=== PATIENT | female | born 1950 | race Caucasian/White ===

== ENCOUNTER 2016-09-13 06:19 | Observation (INO) | payer BC, OTHER ==
[2016-09-13] VITALS (12 sets, daily range): BP systolic 105–146; BP diastolic 60–84; PULSE 61–85; TEMP 36.4–37; O2SAT 95–100; Ht 170.2 cm; Wt 151.6 kg
[~2016-09-13] VITALS: Ht 170.2 cm; Wt 151.6 kg
[~2016-09-13 06:19] MED LIST: ATOR10TA82 PO; CEFAZOLIN 3000 MG/65 ML D5W 65 ML IV SCH; FRS/40 PO; GLC/500 PO; LACTATED RINGER'S 1000ML IV SCH; LEVO150T9 PO; LISI-729 PO; PRLSR20 PO; WARF5TAB7 PO; WARF7.5T4 PO
[2016-09-13] MEDS ORDERED: BUPIVACAINE 0.5 % 5 MG/1 ML MPF 30ML VIAL ONE (06:59)
[2016-09-13] MEDS ORDERED: LIDOCAINE HCL 1% 20 ML VIAL ONE (06:59)
[2016-09-13] MEDS ORDERED: BACITRACIN 50000 UNIT VIAL ONE (06:59)
[2016-09-13] MEDS ORDERED: MIDAZOLAM HCL 5 MG/ML 1 ML VIAL ONE (07:39)
[2016-09-13] MEDS ORDERED: FENTANYL CITRATE INJ 50 MCG/1 ML 2 ML VIAL ONE ×4 (07:39→09:51)
--- NOTE | 2016-09-13 07:50 | History & Physical Bridge Note ---
H&P Re-Evaluation Bridge Note: I have examined the patient, reviewed the History & Physical and in the interval since the performance of the History & Physical I have noted the following changes of clinical significance: No changes noted
--- NOTE | 2016-09-13 07:50 | Procedure Note ---
Pre-Mod Sedation Assessment General Date of Moderate Sedation: September 13, 2016. Vital Signs: Vital Signs Past 12 Hours Date Time Temp Pulse Resp B/P Pulse Ox O2 Delivery O2 Flow Rate FiO2 09/13/16 06:39 37 85 18 146/60 95 Room Air Review Cardiovascular: regular rate, rhythm, + bradycardia Abdomen: soft Lungs: lungs clear Airway Class: II Pre-Sedation Airway Assessment Oral Cavity: Chipped Teeth Short Thick Neck: Yes Hx of Sleep Apnea: No Smoking Status: Former Smoker Mallampati Classification: Class II ASA Classification: Class II Procedure Planning Contraindications-for Mod Sed: None Yes Notes The planned sedation has been discussed with the patient and consent obtained. I have identified the patient, determined the appropriateness of sedation and have assessed the patient immediately prior to the procedure. All medicine(s) and interventions are by my order.
[2016-09-13] MEDS ORDERED: MIDAZOLAM HCL 1 MG/ML 2ML VIAL ONE ×5 (08:49→10:03)
--- NOTE | 2016-09-13 10:36 | Procedure Note ---
Post-Mod Sedation Assessment General Date of Moderate Sedation September 13, 2016. Vital Signs: Vital Signs Past 12 Hours Date Time Temp Pulse Resp B/P Pulse Ox O2 Delivery O2 Flow Rate FiO2 09/13/16 10:20 60 22 173/74 100 Mask 3 09/13/16 06:39 37 85 18 146/60 95 Room Air Review - Discharge Criteria Vital Signs Stable: Yes Alert/Oriented/Conversant: Yes Returned to Baseline Mental St: Yes Nausea Absent/Minimal: Yes Pain/Discomfort/Absent/Minimal: Yes Normal/Baseline Respirations: Yes Active Bleeding?: No Pt Received D/C Instructions: N/A Prescriptions Given: None Specific Proced. D/C Criteria Distal Pulses Present (Cardiac: N/A Groin site assessed-Card Cath: N/A Voided Prior To Discharge: N/A Discharged Patients Adult Escort/Transportation: N/A
--- NOTE | 2016-09-13 10:36 | [facility] Post Operative Brief Note ---
Immediate Operative Summary Operative Date September 13, 2016. Pre-Operative Diagnosis TACHY-KARI SYNDROME Post-Operative Diagnosis SAME Procedure(s) Performed DUAL CHAMBER PERMANENT PACEMAKER UNDER FLUROSCOPIC GUIDANCE WITH PERIPHERAL VENOGRAM Surgeon RONI GAINES Personnel Adviser Surgeon(s) NONE Estimated Blood Loss <20CC Findings NONE Fluids (cc crystalloids) 400CC Specimens NONE Drains NONE Anesthesia 14MG VERSED AND 350MCG FENTANYL Complication(s) None Disposition PCU
[2016-09-13] MEDS ORDERED: ACETAMINOPHEN 325 MG TAB PO PRN (10:45)
[2016-09-13] MEDS ORDERED: IV FLUIDS COMPLETED PRN (11:30)
[2016-09-13] MEDS: ACETAMINOPHEN/CODEINE 300/30MG TAB PO PRN (11:55)
[2016-09-13] MEDS: METOPROLOL SUCC 25MG EXT REL TAB PO SCH (12:12)
[2016-09-13 12:21] LABS: INR 1.4 (0.9-1.1); PROTHROMBIN TIME (PATIENT) 15.6 SECONDS (9.0-12.0)
--- NOTE | 2016-09-13 14:07 | OPERATIVE REPORT ---
DATE OF OPERATION: 09/13/2016 PREOPERATIVE DIAGNOSIS: Tachybrady syndrome. POSTOPERATIVE DIAGNOSIS: Same. PROCEDURE: Dual chamber rate responsive permanent pacemaker under fluoroscopic guidance along with a peripheral venogram. SURGEON: Dr. Farida Mathews. FLOODPLAIN MANAGER: None. ANESTHESIA: Monitored anesthetic conscious sedation given under my supervision. Administering nurse was Yakov Joy. A total of 14 mg of Versed, 350 mcg of fentanyl. Start time 8:09; End time 9:20 INTRAVENOUS FLUIDS: 400 mL CONTRAST: 10 mL ANTIBIOTICS: 3 grams of Ancef. COMPLICATIONS: None. CONDITION: Stable. URINE OUTPUT: Not applicable. FINDINGS: None. DRAINS: None. BLOOD LOSS: Less than 20 mL INDICATIONS: This is a 66-year-old female who has a past medical history of persistent atrial fibrillation, on Coumadin, not on AV latonya blockers, history of atrial flutter, status post CTI ablation in the past, chronic diastolic heart failure [place] Heart Association class III, diabetes, hypertension, hyperlipidemia, hypothyroidism, and morbid obesity. The patient has been having evidence of tachybrady syndrome. She is not on any AV latonya blockers and was recommended dual chamber permanent pacemaker with the idea in the future to have a cardioversion and start on antiarrhythmic medicines. CONSENT: Consent was obtained prior to the patient going to the electrophysiology lab. The patient was explained of the risks, benefits, alternatives to the procedure. Risks include but not limited to sudden cardiac , cardiac arrhythmias, cerebrovascular accident, myocardial infarction, injury to the blood vessels, chamber of the heart, lungs, bleeding, infection, or blood clots. The patient understood these risks and agreed to the procedure as planned. Informed consent was obtained. DESCRIPTION OF THE PROCEDURE: The patient was brought into the electrophysiology lab in a fasting state. She was connected to continuous entrepreneurial finance professor and a timeout was performed to ensure the patient's identity and procedure correctly. The patient was prepped and draped over the left infraclavicular space in normal surgical standard fashion. Monitored conscious sedation was given throughout the procedure for the patient's comfort level. Fries precautions were maintained throughout the procedure. The patient received prophylactic antibiotics prior to the incision. 10 mL of 1% lidocaine-bupivacaine mixture were given in the left deltopectoral groove. Incision was made in the left deltopectoral groove. Blunt dissection was performed down to identify the cephalic vein. The cephalic vein was identified and isolated using 0 silk ties. The vein was nicked with an 11 blade and a guidewire was inserted without any resistance. A 7-Mauritian sheath was inserted over the guidewire without resistance. The dilator was removed and a second guidewire was inserted over it through the 7-Mauritian sheath to allow for retained venous access. The sheath was then removed, flushed, dilator reinserted on it, and then it was inserted over one of the guidewires. The guidewire and dilator were removed. The right ventricular lead was advanced into the right ventricle and positioned into the right ventricular apex under fluoroscopic guidance. It did need to be repositioned 2 additional times due to some elevated impedance and thresholds. Ultimately, in the apex, we got stable sensing, impedance and thresholds, and there was no diaphragmatic stimulation with high output pacing. The sheath was then peeled away and lead was fixated to the pectoralis muscle using 0 silk suture. Initially, a 7-Mauritian sheath was used to try to advance over the retained guidewire through the cephalic vein; however, due to a lot of soft tissue, the sheath kept bending and did not have enough force. We up-dilated it using an 8-Mauritian dilator and a 9-Mauritian dilator and then ultimately used a 7-Mauritian OptiSeal sheath and inserted that over the guidewire without resistance. However, when I was having problems before I had the OptiSeal sheath, we did set up for a peripheral venogram using 10 mL of IV contrast, followed by 10 mL of flush, so I could identify the axillary vein because I thought I was going to have the stick, but with the OptiSeal sheath, I was able to use the cephalic vein. The dilator and sheath were removed and the right atrial lead was positioned into the right atrial appendage under fluoroscopic guidance. The patient was in atrial fibrillation, so no threshold testing was performed, but sensing of the fib waves and impedance were stable. There was no diaphragmatic stimulation with high output pacing. The sheath was peeled away and the lead was fixated to pectoralis muscle using 0 silk suture. Using blunt dissection, a pacemaker pocket was created over the pectoralis muscle within the pectoralis fascia. The pocket was then flushed with copious amounts of bacitracin saline wash and inspected for hemostasis. The pulse generator was then attached to the leads, making sure that the pins were in appropriate position, passed the set screws, and set screws were all tightened. The pulse generator was then placed in the pocket, making sure that the leads were lying flat beneath the device. A stay stitch using 0 silk suture was used to secure the device to the pectoralis muscle. Taya stat was used in the pocket as the patient is going back on Coumadin. Then, the incision was closed in a 3-layer fashion using 2-0 Vicryl suture, followed by 3-0 suture, followed by a 4-0 Monocryl running stitch, and Dermabond was applied. EQUIPMENT: 1. Pulse generator is a [employer] DAISY Akers [id number], serial number [id number]. 2. Right atrial lead Medtronic 5076-52 cm, serial number [id number]. 3. Right ventricular lead Medtronic 5076-58 cm, serial number [id number]. INTRAOPERATIVE TESTIN. Right atrial lead fib waves were sensed at 1 millivolt, impedance 613 ohms, no threshold testing as the patient was in AFib. 2. Right ventricular lead: R-wave 10.1 millivolts, impedance 1388 ohms, threshold 0.4 volts at 0.3 milliamps. FINAL MEASUREMENTS THROUGH THE DEVICE: 1. Right atrial lead fib waves 0.8 millivolts, impedance 456 ohms. 2. Right ventricular lead: R-waves 11.9 millivolts, impedance 912 ohms, threshold 0.5 volts at 0.4 milliseconds. FINAL PARAMETERS: MVP-R 60/130. Right atrial amplitude 3.5 volts, pulse width 0.4 milliseconds, sensitivity 0.3 millivolts. Right ventricular amplitude 3.5 volts, pulse width 0.4 milliseconds, sensitivity 0.9 millivolts. CONCLUSION: Successful implantation of a dual chamber rate responsive permanent pacemaker under fluoroscopic guidance secondary to tachybrady syndrome. PLAN: Monitor the patient overnight, 12-lead ECG, chest x-ray. She cannot lift the left elbow or left shoulder for 1 month. She cannot lift more than 10 pounds with the left arm for 2 weeks. She can shower in 2 days, let water run over the incision, do not scrub it. We will start her on Toprol 25 mg daily with the intention that we are restarting her Coumadin once she has had therapeutic Coumadin for the next month or we would do a FABIENNE prior to arranging for cardioversion and hospital admission for sotalol initiation. She should follow up in our [facility] in 7-10 days for a wound check. I attest to the content of the Intraoperative Record and any orders documented therein. Any exceptions are noted below. MYRON
[2016-09-13] MEDS: METFORMIN HCL 500 MG TAB PO SCH (15:24)
[2016-09-13] MEDS ORDERED: WARFARIN SOD 5 MG TAB PO SCH (16:00)
[2016-09-13] MEDS ORDERED: ATORVASTATIN 10 MG TAB PO SCH (21:00)
[2016-09-14] MEDS: ACETAMINOPHEN/CODEINE 300/30MG TAB PO PRN (01:36)
[2016-09-14 03:47] VITALS: BP 95/57; PULSE 74; TEMP 36.8; O2SAT 96
[2016-09-14] MEDS ORDERED: LEVOTHYROXINE 150 MCG TAB PO SCH (06:00)
--- NOTE | 2016-09-14 07:46 | DIAGNOSTIC IMAGING REPORT ---
CHEST 2 VIEWS ROUTINE CLINICAL HISTORY: Pacemaker insertion. COMPARISON STUDY: Chest radiograph October 11, 2013. FINDINGS: There has been interval placement of a dual lead left subclavian pacemaker. Lead tips project over the right atrial appendage and the right ventricle. There is mild cardiomegaly. No pneumothorax is present. There is no evidence of pulmonary edema. There is mild to moderate elevation/eventration of the right hemidiaphragm. Median sternotomy wires are present. IMPRESSION: No pneumothorax following placement of a dual lead left subclavian pacemaker. Electronically signed by: Luan Villavicencio M.D. 09/14/2016 7:45 AM Dictated Date/Time: 09/14/2016 7:43 AM
[2016-09-14 08:00] VITALS: O2SAT 96
[2016-09-14] MEDS: METFORMIN HCL 500 MG TAB PO SCH (08:00)
[2016-09-14] MEDS: METOPROLOL SUCC 25MG EXT REL TAB PO SCH (08:02)
[2016-09-14 08:33] VITALS: BP 123/70; PULSE 59; TEMP 36.9; O2SAT 96
[2016-09-14] MEDS ORDERED: TPRSR25 PO (08:50)
--- NOTE | 2016-09-14 08:52 | Discharge Instructions ---
Discharge Instructions Date of Service September 14, 2016. Admission Reason for Admission: Tachy Shruthi Syndrome Discharge Discharge Diagnosis / Problem: tachy-shruthi syndrome Discharge Goals Goal(s): Improve function Activity Recommendations Activity Limitations: as noted below (do not lift the left elbow over the left shoulder for 1 month and lift more than 10 pounds with the left arm for 2 weeks) Exercise/Sports Limitations: as tolerated May Resume Sexual Activity: after one week Shower/Bathe: tomorrow Driving or Machine Use: resume 1 day after discharge . Instructions / Follow-Up Instructions / Follow-Up ACTIVITY RECOMMENDATIONS: * Do not raise affected arm over head for 4 weeks. SPECIAL CARE INSTRUCTIONS: * If bleeding occurs, apply direct pressure to area for 5 minutes. * Call your doctor if you have severe pain, fever, drainage or bleeding at site. * Keep dry for 24 hours. * Keep any scheduled doctor's appointment. * Implant Card - hand held device with website information given. SKIN IRRITATION: * You may experience some redness and/or swelling in the area where radiation was administered. If any skin irritation occurs, please contact your family physician. FOLLOW UP VISIT: Keep any scheduled doctor appointments. Current Hospital Diet Patient's current hospital diet: AHA Diet (Heart Healthy), Diabetes Type 2 Diet Discharge Diet Recommended Diet: AHA Diet (Heart Healthy) Procedures Procedures Performed: DUAL CHAMBER PERMANENT PACEMAKER UNDER FLUROSCOPIC GUIDANCE WITH PERIPHERAL VENOGRAM Pending Studies Studies pending at discharge: no Medical Emergencies . Who to Call and When: Medical Emergencies: If at any time you feel your situation is an emergency, please call 911 immediately. . Non-Emergent Contact Non-Emergency issues call your: [employer] Administrator . . "Provider Documentation" section prepared by Farida Mathews. . VTE Core Measure Inpt VTE Proph given/why not?: Warfarin (Coumadin)
--- NOTE | 2016-09-14 08:55 | Discharge Summary ---
Discharge Summary Date of Service September 14, 2016. Discharge Summary Admission Date: September 13, 2016 at 10:34 Discharge Date: September 14, 2016 Discharge Disposition: Home Principal Diagnosis: tachy-shruthi syndrome Secondary Diagnoses/Problems: persistent atrial fibrillation h/o atrial flutter s/p CTI ablation morbid obesity Procedures: dual chamber pacemaker Medication Reconciliation New Medications: Metoprolol Succinate (Metoprolol Succinate ER) 25 Mg Tabcr 25 MG PO QAM for 30 Days, #30 Continued Medications: Atorvastatin (Lipitor) 10 Mg Tab 10 MG PO QPM, TAB Furosemide (Lasix) 40 Mg Tab 40 MG PO QAM, TAB Levothyroxine Sodium (Levothyroxine Sodium) 150 Mcg Tab 1 TAB PO QAM for 90 Days, #90 TAB 3 Refills Lisinopril (Zestril) 5 Mg Tab 5 MG PO QAM, TAB Metformin Hcl (Glucophage) 500 Mg Tab 500 MG PO BID, TAB Omeprazole (Prilosec) 20 Mg Capcr 20 MG PO QAM, CAP Warfarin Sod (Jantoven) 5 Mg Tab 5 MG PO DAILY, TAB Admission Information Physical Exam (per Admitting): aaox3, nad nc/at, eomi supple, no jvd irregular irregular s1/s2, no murmur cta b/l no w/r/r soft non tender no edema no focal deficits Hospital Course patient admitted for elective permanent pacemaker insertion due to tachy-shruthi syndrome. Underwent procedure without complications. Monitored overnight and started on Toprol. Discharged home next day Total time spent on discharge = This includes examination of the patient, discharge planning, medication reconciliation, and communication with other providers. Discharge Instructions ACTIVITY RECOMMENDATIONS: * Do not raise affected arm over head for 4 weeks. SPECIAL CARE INSTRUCTIONS: * If bleeding occurs, apply direct pressure to area for 5 minutes. * Call your doctor if you have severe pain, fever, drainage or bleeding at site. * Keep dry for 24 hours. * Keep any scheduled doctor's appointment. * Implant Card - hand held device with website information given. SKIN IRRITATION: * You may experience some redness and/or swelling in the area where radiation was administered. If any skin irritation occurs, please contact your family physician. FOLLOW UP VISIT: Keep any scheduled doctor appointments.
[2016-09-14 08:57] LABS: ACT87 HEP C IGG SCREEN** NEG (NEG)
[2016-09-14] MEDS ORDERED: LISINOPRIL 5 MG TAB PO SCH (09:00)
[2016-09-14] MEDS ORDERED: FUROSEMIDE 40 MG TAB PO SCH (09:00)
[2016-09-14 09:20] LABS: INR 1.3 (0.9-1.1); PROTHROMBIN TIME (PATIENT) 14.4 SECONDS (9.0-12.0)
[2016-09-14 10:40] VITALS: BP 123/70; PULSE 72; TEMP 36.9; O2SAT 96
--- NOTE | 2016-09-14 14:09 | Cardiology Follow-Up ---
Subjective Subjective Date of Service: September 14, 2016. Pt evaluation today including: conversation w/ patient, physical exam, lab review, review of studies Review of Systems Constitutional: No fatigue Respiratory: No dyspnea on exertion, No shortness of breath Cardiac: No chest pain, No edema, No palpitations Abdomen: No diarrhea, No vomiting Endo: No fatigue Objective Vital Signs Last Vital Signs Documentation Date Time Temp Pulse Resp B/P Pulse Ox O2 Delivery O2 Flow Rate FiO2 09/14/16 10:40 36.9 72 18 96 Room Air 09/14/16 08:33 123/70 09/13/16 10:20 3 Physical Exam: General Appearance: WD/WN, no apparent distress Eyes: bilateral eyes EOMI, bilateral eyes PERRL Neck: supple, no JVD Respiratory/Chest: lungs clear, normal breath sounds Cardiovascular: no JVD, no murmur, + tachycardia, + irregularly irregular Abdomen: soft Neurologic/Psychiatric: alert, oriented x 3 Skin: warm/dry Assessment and Plan 1. TBS 2. Persistent atrial fibrillation on coumadin 3. Chronic diastolic heart failure HF, NYHA class III 4. H/o CTI ablation for atrial flutter 5. HTN 6. DM 7. HLD 8. Hypothyroidism 9. Morbid obesity Plan: -Ok for discharge home today -start toprol 25mg daily -pt not to lift her left elbow over left shoulder for 1 month and no lifting more than 10 pounds for 2 weeks -continue other home medications -f/u in our office in 7-10 days -anticipate cardioversion with possible FABIENNE before hand followed by anti- arrhythmic initiation probably sotalol in about a month Discharge planning: home Medications: Medications Administered Medications (Trade) Dose Ordered Sig/Go Route Start Time Stop Time Status Last Admin Dose Admin Cefazolin Sodium (Ancef 3000 Mg/ 65 ml D5W) 65 ml @ 100 mls/hr PREOP IV 09/13/16 06:00 09/14/16 05:59 DC 09/13/16 06:00 100 MLS/HR Fentanyl Citrate (Fentanyl Inj) 100 mcg STK-MED ONCE .ROUTE 09/13/16 07:39 09/13/16 07:40 DC 09/13/16 07:39 100 MCG Midazolam HCl (Versed Inj) 5 mg STK-MED ONCE .ROUTE 09/13/16 07:39 09/13/16 07:40 DC 09/13/16 07:39 5 MG Fentanyl Citrate (Fentanyl Inj) 100 mcg STK-MED ONCE .ROUTE 09/13/16 08:35 09/13/16 08:36 DC 09/13/16 08:35 100 MCG Midazolam HCl (Versed Inj) 2 mg STK-MED ONCE .ROUTE 09/13/16 08:49 09/13/16 08:50 DC 09/13/16 08:49 2 MG Midazolam HCl (Versed Inj) 2 mg STK-MED ONCE .ROUTE 09/13/16 09:08 09/13/16 09:09 DC 09/13/16 09:08 2 MG Fentanyl Citrate (Fentanyl Inj) 100 mcg STK-MED ONCE .ROUTE 09/13/16 09:09 09/13/16 09:10 DC 09/13/16 09:09 100 MCG Midazolam HCl (Versed Inj) 2 mg STK-MED ONCE .ROUTE 09/13/16 09:20 09/13/16 09:21 DC 09/13/16 09:20 2 MG Midazolam HCl (Versed Inj) 2 mg STK-MED ONCE .ROUTE 09/13/16 09:37 09/13/16 09:39 DC 09/13/16 09:37 2 MG Fentanyl Citrate (Fentanyl Inj) 100 mcg STK-MED ONCE .ROUTE 09/13/16 09:51 09/13/16 09:52 DC 09/13/16 09:51 50 MCG Midazolam HCl (Versed Inj) 2 mg STK-MED ONCE .ROUTE 09/13/16 10:03 09/13/16 10:04 DC 09/13/16 10:03 1 MG Acetaminophen/ Codeine Phosphate (Tylenol w/ Codeine #3 Tab) 1 tab for pain scale 4-6 2 t... Q4H PRN PO 09/13/16 10:45 09/14/16 10:58 DC 09/14/16 01:36 1 TAB Acetaminophen (Tylenol Tab) 650 mg Q4H PRN PO 09/13/16 10:45 09/14/16 10:58 DC 09/13/16 16:36 650 MG Atorvastatin Calcium (Lipitor Tab) 10 mg QPM PO 09/13/16 21:00 09/14/16 10:58 DC 09/13/16 21:30 10 MG Furosemide (Lasix Tab) 40 mg QAM PO 09/14/16 09:00 09/14/16 10:58 DC 09/14/16 08:02 40 MG Levothyroxine Sodium (Synthroid Tab) 150 mcg DAILYBB PO 09/14/16 06:00 09/14/16 10:58 DC 09/14/16 05:40 150 MCG Lisinopril (Zestril Tab) 5 mg QAM PO 09/14/16 09:00 09/14/16 10:58 DC 09/14/16 08:02 5 MG Metformin HCl (Glucophage Tab) 500 mg BIDM PO 09/13/16 16:45 09/14/16 10:58 DC 09/14/16 08:00 500 MG Warfarin Sodium (Coumadin Tab) 5 mg DAILY@1600 PO 09/13/16 16:00 09/14/16 10:58 DC 09/13/16 15:24 5 MG Metoprolol Succinate (Toprol Xl Tab) 25 mg QAM PO 09/13/16 11:00 09/14/16 10:58 DC 09/14/16 08:02 25 MG Lab Results: 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
[2016-11-11] MEDS ORDERED: BTP80 PO (14:39)
== END 2016-09-14 10:57 | disposition home or self-care (01) ==
LOC: C.ACU 06:19 → C.2T 10:34
PROVIDERS: ADMIT Internal Medicine; ATTEND Internal Medicine
DX: I49.5 Sick sinus syndrome (principal); I48.1 Persistent atrial fibrillation; I50.32 Chronic diastolic (congestive) heart failure; E11.9 Type 2 diabetes mellitus without complications; I10 Essential (primary) hypertension; E03.9 Hypothyroidism, unspecified; H81.10 Benign paroxysmal vertigo, unspecified ear; E66.01 Morbid (severe) obesity due to excess calories; Z98.890 Other specified postprocedural states; Z87.891 Personal history of nicotine dependence; Z90.89 Acquired absence of other organs; Z79.899 Other long term (current) drug therapy; Z79.01 Long term (current) use of anticoagulants; Z82.49 Family history of ischemic heart disease and other diseases of the circulatory system; Z83.6 Family history of other diseases of the respiratory system; Z83.3 Family history of diabetes mellitus; Z80.9 Family history of malignant neoplasm, unspecified; Z83.49 Family history of other endocrine, nutritional and metabolic diseases

== ENCOUNTER → 2016-10-30 | Outpatient (CLI) | payer BC ==
[~2016-10-30] MED LIST changes: -ATOR10TA82 PO; +ATOR10TA88 PO; +BTP80 PO; -CEFAZOLIN 3000 MG/65 ML D5W 65 ML IV SCH; -LACTATED RINGER'S 1000ML IV SCH; +TPRSR25 PO
--- NOTE | 2016-10-31 06:18 | PAP/PSG TECHNICIAN REPORT ---
[facility] Grader Tender Polysomnogram Report Study name: None Report date: 10/31/2016 Study date: 10/30/2016 Referring Physician: DARLING RODARTE PA-C Name: CAROLINE PEMBERTON Interpreting Physician: James Ashley D.O. Date of : 1950 Grader Tender: Jesus Wells RPSGT. Sex: Female Age: 66 StudyType: PSG Weight: 337 lbs Height: 66 years, Height 5' 7" BMI: 52.78 Medications: LISINOPRIL 5 MG, JANTOVEN 5 MG, TOPROL XL 50 MG, LEVOXYL 150 MCG, LIPITOR 10 MG, LASIX 40 MG, GLUCOPHAGE 500 MG Patient History PATIENT HAS HISTORY OF HYPERSOMNIA, HEART FAILURE, HYPERTENSION, A-FIB AND FATIGUE. ALSO HAS HISTORY OF HYPOXEMIA. SHE IS HERE TODAY FOR AN EVALUATION FOR FERNY. ESS = 1 RM 7 Parameters Monitored NPSG: E1-M2, E2-M1, Fp1-M2, Fp2-M1, F3-M2, F4-M2, F4-M1, C3-M2, C4-M2, C4-M1, O1-M2, O2-M2, O2-M1, T3-M2, T4-M1, P3-M2, P4-M1, CHIN1, CHIN2, HR, EKG, Legs, PFLOW, SNOR, FLOW, CFLOW, Tidal Volume, THOR, ABDO, SpO2, PLTH, CPRESS, ETCO2 Wave, ETCO2, pH Sleep Architecture Sleep Stages Time at Lights Off 10:21:19 PM STAGES Time (min.) TST (%) Time at Lights On 5:30:49 AM Wake 60.5 -- Total Recording Time (TRT) 430.00 min. N1 11.0 3 Total Sleep Period (TSP) 382.5 min. N2 194.5 53 Total Sleep Time (TST) 369.0min. N3 87.5 24 Awake Time 60.5 min. REM 76.0 21 Wake after Sleep Onset 13.5 min. Sleep Efficiency (SE) 86 % Sleep Onset Latency (SHEILA) 47.0 min. Number of Stage 1 Shifts None Awakenings 16 Stage Changes 76 Number of REM periods 6 REM 76.0 21 REM Latency 77.0 min. NREM 293.0 79 Body Position Analysis Supine Right Left Side Prone Vertical Total Sleep Time (min.) 429.5 0.0 0.0 0.00 0.0 0.0 Total Sleep Time (%) 100% 0% 0% 0 0% N/A% Total Sleep Time REM (min.) 76.0 0.0 0.0 None 0.0 0.0 Total Sleep Time NREM (min.) 293.0 0.0 0.0 None 0.0 0.0 Intermittent Wake (min.) 60.5 0.0 0.0 None 0.0 0.0 Total Sleep Period (%) 100% None None None None None Arousals Myoclonus (PLM) * Events Count Index Events Count Index Spontaneous 30 5 Events Awake (PLMW) 66 65.5 Respiratory 6 1.0 Events Asleep w/ Arousal (PLMA) 5 0.8 PLM 5 1 Events Asleep w/o Arousal (PLMS) 47 7.6 Snoring 1 0 Total Asleep 52 8.5 Total 42 7 Total 118 16 Respiratory Analysis * CA OA MA CH H RERA Total Count 0 0 0 0 68 3 68 Index 0.0 0.0 0.0 0 11.1 0 11.5 Mean Duration 0.0 0.0 0.0 0.00 20.2 15.6 20.0 Longest Duration 0.0 0.0 0.0 0.00 0.0 18.3 39.3 Respiratory Event Summary Total Supine ~Supine Right Left Prone REM NREM Apneas Count 0 0 N/A N/A N/A N/A 0 0 Index 0.0 0 N/A N/A N/A N/A 0 0 Hypopneas (4% Desat) Count 68 68 N/A N/A N/A N/A 54 14 Index 11.1 11.1 N/A N/A N/A N/A 42.6 2.9 Apneas & All Hypopneas Count 68 68 N/A N/A N/A N/A 54 14 Index 11.1 11 N/A N/A N/A N/A 42.6 2.9 Respiratory Events (Microfilm Camera Operator+All Hyp+RERA) Count 68 71 N/A N/A N/A N/A 54 14 Index 11.5 12 N/A N/A N/A N/A 43.4 3.3 Respiratory Related Arousal Count 6 71 N/A N/A N/A N/A 4 2 Index 1.0 1 N/A N/A N/A N/A 3 0 Snoring Analysis Supine Right Left Prone REM NREM Total Snore duration 1.2 min Snores count 19 N/A N/A N/A 5 14 19 Snore mean duration 3.9 Sec Snores index 3 N/A N/A N/A 3.9 2.9 3.1 TST with snoring (%) 0.3% Desaturation Event Summary: Minimum %SpO2 Event Count Mean/Min/Max Duration(sec.) Desaturation Index % Time In Bed > 90 64 32.9 / 6.0 / 58.5 9.3 96.7 86 - 90 6 18.0 / 6.0 / 28.0 41.7 2.0 81 - 85 4 21.2 / 16.0 / 28.0 46.9 1.2 76 - 80 0 N/A 0.0 0.1 71 - 75 0 N/A 0.0 0.0 66 - 70 0 N/A 0.0 0.0 61 - 65 0 N/A 0.0 0.0 56 - 60 0 N/A 0.0 0.0 51 - 55 0 N/A 0.0 0.0 < 50 0 N/A 0.0 0.0 Total REM NREM Awake <50% 0.0 min. 0.0 min. 0.0 min. 0.0 min. 51 - 60% 0.0 min. 0.0 min. 0.0 min. 0.0 min. 61 - 70% 0.0 min. 0.0 min. 0.0 min. 0.0 min. 71 - 80% 0.5 min. 0.5 min. 0.0 min. 0.0 min. 81 - 90% 13.7 min. 12.5 min. 0.4 min. 0.8 min. 91 - 100% 414.3 min. 62.9 min. 292.4 min. 59.0 min. Average 94 93 94 95 Minimum SpO2 73 73 83 83 Desaturation Event Index 9.6 41.8 2.7 3.0 # Desat. Events below 89% 30 29 1 0 Time(%) with Saturation below 89% 2.4 2.1 0.1 0.2 Time(min.) with Saturation below 89% 10.1 9.1 0.3 0.7 Time (mins) REM (mins) NREM (mins) % of TST SpO2 Below 90% 39 36 N3 3.0 SpO2 Below 88% 16 0 0 2 Heart Rate Analysis Min (bpm) Max (bpm) Average (bpm) Awake 58 127 66 NREM 57 85 65 REM 58 88 66 Overall 57 88 65 Supplemental O2 Values Minimum O2 level: None Value Start Time End Time Grader Tender Comments Ms. Pemberton slept in the supine positions. Irregular EKG noted at times. Leg movements noted. No bruxism noted. Snoring was noted and scored as a 2 on a scale of 1 through 5. (0=no snoring, 5=snoring loud enough to be heard through a closed door or down the lee way) Ms. Pemberton awoke to use the restroom 0 times during the night. Ms. Pemberton stated I slept as well as I do when I am in my own bed. The final report will be interpreted and signed by a sleep physician. The completed physician report will then be placed in the patient medical record. Therapy (cm H2O) 0 TIB (min.) 429.5 TST (min.) 369.0 Sleep Onset (min.) 47.0 REM Onset From Sleep (min.) 77.0 Sleep Efficiency % 86 Wakefulness (%) 14 Wakefulness (min.) 60.5 NREM 1 (%) 3 NREM 1 (min.) 11.0 NREM 2 (%) 53 NREM 2 (min.) 194.5 NREM 3 (%) 24 NREM 3 (min.) 87.5 REM (%) 21 REM (min.) 76.0 # Arousals 42 Arousal Index 7 # Snore 19 Snore Index 3.1 AHI 11.1 AHI Supine 11 AHI Non-Supine N/A NREM AHI 2.9 REM AHI 42.6 RDI 11.5 # Obstructive Apnea 0 # Central Apnea 0 # Mixed Apnea 0 # Hypopneas 68 RERAs 3 Total Respiratory Events 71 Time Below SpO2 89% (min.) 9.4 Mean NREM SpO2 (%) 94 Mean REM SpO2 (%) 93 Mean Sleep SpO2 (%) 94 Min NREM SpO2 (%) 83 Min REM SpO2 (%) 73 Position Supine (min.) 429.5 Position Non-supine (min.) 0.0 LM Index Sleep 8.5 LM Index NREM 7.0 LM Index REM 14.2 Mean Heart Rate (bpm) 65 Min Heart Rate (bpm) 57
--- NOTE | 2016-11-06 16:35 | Sleep Study ---
Sleep Study Report Date of Service: 10/30/2016 Sleep Study Report CLINICAL DATA: Patient is referred by Guero Cruz PA-C for an in-lab sleep study. She is a 66-year-old female with a BMI of 52.78. Her complaints were those of excessive daytime somnolence. She has a history of atrial fibrillation, hypertension, diabetes mellitus, and congestive heart failure. SLEEP ARCHITECTURE: The total sleep. Was 382.5 minutes. The total sleep time was 369.0 minutes. The sleep efficiency is mildly reduced to 86 percent. The sleep onset latency was 47 minutes which is elevated. Wake after sleep onset was 13.5 minutes. The REM latency was normal at 77.0 minutes. Sleep consisted of stage N1 3 percent, stage N2 53 percent, stage N3 24 percent, stage REM 21 percent. AROUSAL DATA: Patient had a total of 42 arousals including 30 spontaneous arousals, 6 respiratory arousals, 5 PLM arousals, and 1 snoring arousal. The arousal index was 7. PLM data: The patient 52 periodic limb movements of sleep for an index of 8.5. There were 5 arousals for a PLM arousal index of 0.8. EKG: The underlying cardiac rhythm was atrial fibrillation. The cardiac rates ranged from 57 to 88 beats per minute. RESPIRATORY DATA: The patient had a total of 68 respiratory events, all hypopneas. Hypopneas were scored by the 4 percent desaturation rule. The apnea-hypopnea index was elevated at 11.1. The mean duration of the hypopneas was 20.2 seconds it is notable that most of the events occurred during REM sleep in the apnea-hypopnea index during REM was 42.6. Results reflect mild sleep apnea. OXIMETRY DATA: The average saturation for the night was 94 percent. The minimum saturation was 73 percent. There was a total of 10.1 minutes with saturations less than 89 percent. The desaturations mainly occurred during REM sleep. MEMBERSHIP SECRETARY COMMENTS: The patient slept in the supine position leg movements were noted. No bruxism noted. Snoring was noted in scored as a 2 on a scale of 1 through 5 IMPRESSIONS: 1. Obstructive sleep apnea-mild 2. Atrial fibrillation COMMENTS: Patient has mild sleep apnea. However with her history of atrial fibrillation, hypertension, and congestive heart failure, clearly treatment would be advised. Her sleep efficiency was reduced mainly related to a prolonged sleep latency. Her oxygenation was abnormal as noted the major portion of the events occurred during REM sleep. RECOMMENDATIONS: 1. It is advised that the patient be treated with nasal CPAP. This could be done by referring [facility]. Alternatively she could be treated with auto CPAP. 2. The patient has an elevation of body mass index at 52.78. A weight reduction program is suggested. 3. The patient spent this entire study in the supine position. If possible it is advised that she avoid sleeping supine is there is typically more respiratory events in the supine position. Copies To 1: James Ashley DO; Nicolas Riley M.D.; Guero Cruz PA-C
--- NOTE | 2016-11-24 13:03 | Sleep Study ---
Sleep Study Report Date of Service: 10/31/16] Sleep Study Report Interpreting Physician: Carmen Fontnaa Edge Sawyer Jesus Wells RPSGT Ms Pemberton is a 66-year-old female who presents to the sleep lab for a baseline sleep study. She has a history of hypersomnia, heart failure, hypertension, and atrial fibrillation. She also has a history of nocturnal hypoxemia. Her [place] sleepiness scale score on the evening of the study is 1 , BMI is 52.78. Ms Pemberton total sleep period time was 382.5 minutes. total sleep time was 369 minutes. Sleep efficiency was 86%. Latency to sleep onset was 47 minutes with wake after sleep onset of 13.5 minutes. Total non-REM sleep time was 293 minutes. She spent 5% of that time in N1 sleep 53% in N2 sleep and 24% in N3 sleep. REM latency was 77 minutes. Total REM sleep time was 76 minutes or 21% of total sleep time. There were 42 cortical arousals from sleep. 30 of these arousals were spontaneous, 6 were due to respiratory events, 5 due to periodic limb movements of sleep, and 1 was due to a snoring events. There were 52 periodic limb movements of sleep on this test. Limb movement index was 8.5, lymph node with arousal index was 0.8. There were no obstructive central or mixed apneas on this study. There were 68 hypopneas. Apnea-hypopnea index was 11.1. REM AHI was 42.6. 19 [place] in the events were noted on this test. Total sleep time with snoring was 0.3%. Mean saturation was 94% with desaturations below 89% for 10.1 minutes of recorded time. There is no cardiac ectopy noted on this study. This patient's baseline heart rhythm was atrial fibrillation. Heart rates ranged from a low of 57 beats per minute to a high of 88 beats per minute during sleep. Impression and plan: 66-year-old female with history of atrial fibrillation hypertension and heart failure with evidence of mild sleep apnea, severe in REM sleep, and nocturnal hypoxemia on the sleep study. This patient would likely benefit from CPAP therapy. She should return to the sleep lab for a full night titration and then based on those results be started on CPAP at home. A download from her machine can be reviewed in 1 month to check compliance as well as AHI and further pressure adjustments can occur at that time. Alternatively, this patient could be started on auto titrating CPAP at home. Her device can be set to a pressure range of 5-15 cm of water. After 1 month, she can be set to optimal pressure and an overnight oximetry can confirm her hypoxemia resolved with CPAP alone. Should this patient be on willing or unable to tolerate CPAP therapy, she should be referred to ear nose and throat or oral surgery/ dental Medicine (if appropriate) to discuss alternative treatments for sleep disordered breathing. Sarah Fontana MD
== END | disposition home or self-care (01) ==
LOC: C.NEUR 20:00
PROVIDERS: ATTEND Physician Assistant
DX: G47.33 Obstructive sleep apnea (adult) (pediatric) (principal); G47.10 Hypersomnia, unspecified; I11.0 Hypertensive heart disease with heart failure; I50.30 Unspecified diastolic (congestive) heart failure; I48.1 Persistent atrial fibrillation

== ENCOUNTER 2016-11-09 10:16 | Inpatient (IN) | payer BC, OTHER ==
[2016-11-09] VITALS (7 sets, daily range): BP systolic 120–145; BP diastolic 68–85; PULSE 62–78; TEMP 36.3–36.6; O2SAT 95–98; Ht 167.6 cm; Wt 155.9 kg
[~2016-11-09] VITALS: Ht 167.6 cm; Wt 155.9 kg
[~2016-11-09 10:16] MED LIST changes: -BTP80 PO; -WARF7.5T4 PO
[2016-11-09] MEDS ORDERED: WARF7.5T4 PO (11:13)
[2016-11-09] MEDS ORDERED: ZOLPIDEM TARTRATE 5 MG TAB PO PRN ×2 (11:15)
[2016-11-09] MEDS ORDERED: POLYETHYLENE (MIRALAX) 17 GM PACK PO PRN (11:15)
[2016-11-09] MEDS ORDERED: MoRPHine SULFATE 2 MG/ML CARP IV PRN (11:15)
[2016-11-09] MEDS ORDERED: ONDANSETRON INJ 2 MG/ML 2 ML VIAL IV PRN (11:15)
[2016-11-09] MEDS ORDERED: ALUMINUM/MAGNESIUM/SIMETH (MAALOX MAX) 30 ML UDC PO PRN (11:15)
[2016-11-09] MEDS ORDERED: MAGNESIUM HYDROXIDE SUSP 30 ML UDC PO PRN (11:15)
[2016-11-09] MEDS ORDERED: SOTALOL HCL 80 MG TAB PO ONE (11:30)
--- NOTE | 2016-11-09 11:41 | History and Physical ---
History General Date of Service: Nov 09, 2016. Stated Complaint: Atrial Fibrillation History of Present Illness The patient is a 66 year old female who presents to [facility] with complaints of Atrial Fibrillation. The patient's primary care provider is Nicolas Riley M.D..Pt. with persistent Atrial fibrillation here to start Sotalol load and if possible cardioversion this admission. Historian: patient Review of Systems Constitutional: No see HPI, No fever, No chills, No sweats, No weight loss, No weakness, No fatigue, No problem reported Respiratory: No see HPI, No cough, No sputum, No wheezing, No shortness of breath, No dyspnea on exertion, No dyspnea at rest, No hemoptysis, No problem reported Cardiac: No see HPI, No chest pain, No orthopnea, No PND, No edema, No claudication, No palpitations, No problem reported Abdomen: No see HPI, No pain, No nausea, No vomiting, No diarrhea, No constipation, No GI bleeding, No problem reported Female : No see HPI, No dysuria, No urinary frequency, No hematuria, No incontinence, No abnormal vaginal bleeding, No vaginal discharge, No problem reported Neurologic: No see HPI, No memory loss, No paralysis, No weakness, No numbness/ tingling, No vertigo, No balance problems, No problem reported Heme: No see HPI, No abnormal bleeding/bruising, No clotting problems, No swollen lymph nodes, No night sweats, No problem reported Endo: No see HPI, No fatigue, No excessive thirst, No excessive urination, No problem reported Skin: No see HPI, No rash, No itch, No new/changing skin lesions, No color change, No bleeding, No problem reported All Other Systems: Reviewed and Negative Past Medical/Surgical History PAF Tachy Perez Atrial flutter ablation Pacemaker Atrial Septal defect repair at age 24 [facility] Diabetes,Hypertension,Dyslipidemia, Hypothyroid Family History Diabetes mellitus FH: cancer FH: gallbladder disease FH: heart disease FH: lung disease Social History Smoking Status: Former Smoker Alcohol: none Occupation Status: employed Immunizations History of Influenza Vaccine: N/A History of Tetanus Vaccine?: Yes Tetanus Immunization Date: Dec 21, 2006 History of Pneumococcal: No History of Hepatitis B Vaccine: No Allergies Coded Allergies: No Known Allergies (Verified , 09/13/16) Current Home Medications Reported Home Medications Medications Dose Route/Sig Max Daily Dose Days Date Category Dose Instructions Jantoven (Warfarin Sodium) 7.5 Mg Tab 7.5 Mg PO 11/09/16 Reported Metoprolol Succinate ER (Metoprolol Succinate) 25 Mg Tabcr 25 Mg PO QAM 30 09/14/16 Rx Lasix (Furosemide) 40 Mg Tab 40 Mg PO QAM 11/12/15 Reported Glucophage (Metformin Hcl) 500 Mg Tab 500 Mg PO BID 11/12/15 Reported Prilosec (Omeprazole) 20 Mg Capcr 20 Mg PO QAM 11/12/15 Reported Lipitor (Atorvastatin Calcium) 10 Mg Tab 10 Mg PO QPM 11/12/15 Reported Levothyroxine Sodium 150 Mcg Tab 1 Tab PO QAM 90 11/12/15 Reported Zestril (Lisinopril) 5 Mg Tab 5 Mg PO QAM 11/12/15 Reported Jantoven (Warfarin Sodium) 5 Mg Tab 5 Mg PO DAILY 11/12/15 Reported 5mg Monday and Monday Physical Exam Date Time Temp Pulse Resp B/P (MAP) Pulse Ox O2 Delivery O2 Flow Rate FiO2 11/09/16 10:45 36.5 78 18 135/80 98 Room Air Weight in Kilograms: 152.200 Constitutional: Level of Distress: NAD Ambulation: ambulating normally Head: normocephalic ENMT: normal ENT inspection Neck: supple, trachea midline, no masses Lungs: Respiratory effort: good air movement Auscultation: breath sounds normal Cardiovascular: Heart Auscultation: RRR, normal S1, normal S2, no murmurs, no rubs Peripheral Pulses: Carotid Pulse: normal on the left, normal on the right Radial Pulse: normal on the left, normal on the right Femoral Pulse: normal on the left, normal on the right Abdomen: Bowel Sounds: normal Inspection & Palpation: soft, non-distended Liver: non-tender Musculoskeletal: normal Extremities: no cyanosis Neurologic: Gait & Station: normal gait, normal station Cranial Nerves: grossly intact Sensation: grossly intact Diagnostics Laboratory Results Results Past 24 Hours Test 11/09/16 11:22 Range/Units Impression Assessment and Plan Persistent Atrial Fibrillation admitted for Sotalol load and possible cardioversion. Advanced Directives Existing Living Will: No Existing Power of Dentist Attendant: No DVT Prophylaxis warfarin (Coumadin)
[2016-11-09 12:30] LABS: HEMATOCRIT 36.8 % (37-47); MEAN CORPUSCULAR HEMOGLOBIN 28.7 pg (25-34); MEAN CORPUSCULAR HGB CONC 32.6 g/dl (32-36); MEAN PLATELET VOLUME 9.9 fL (7.4-10.4); PLATELET COUNT 198 K/uL (130-400); RED BLOOD COUNT 4.18 M/uL (4.2-5.4); WHITE BLOOD COUNT 5.63 K/uL (4.8-10.8)
[2016-11-09 12:50] LABS: PROTHROMBIN TIME (PATIENT) 52.2 SECONDS (9.0-12.0)
[2016-11-09 12:54] LABS: BUN/CREATININE RATIO 32.2 (10-20); CALCIUM 8.9 mg/dl (8.5-10.1); CREATININE 0.68 mg/dl (0.60-1.20); POTASSIUM 3.8 mmol/L (3.5-5.1)
[2016-11-09 12:57] LABS: PARTIAL THROMBOPLASTIN RATIO 2.4
[2016-11-09 13:00] LABS: INR 4.6 (0.9-1.1)
[2016-11-09] MEDS: METFORMIN HCL 500 MG TAB PO SCH (20:28)
[2016-11-09] MEDS: ATORVASTATIN 10 MG TAB PO SCH (20:29)
[2016-11-09] MEDS: SOTALOL HCL 80 MG TAB PO SCH (20:29)
[2016-11-10] VITALS (9 sets, daily range): BP systolic 127–156; BP diastolic 71–83; PULSE 60–65; TEMP 36.4–36.6; O2SAT 95–98
[2016-11-10] MEDS: ACETAMINOPHEN 325 MG TAB PO PRN ×3 (01:14→21:15)
[2016-11-10 03:22] LABS: INR 4.8 (0.9-1.1)
[2016-11-10] MEDS: LEVOTHYROXINE 150 MCG TAB PO SCH (05:47)
[2016-11-10] MEDS: SOTALOL HCL 80 MG TAB PO SCH ×2 (07:51→21:12)
[2016-11-10] MEDS: ASPIRIN 81 MG ECTAB PO SCH (07:51)
[2016-11-10] MEDS: METFORMIN HCL 500 MG TAB PO SCH ×2 (07:51→21:12)
[2016-11-10] MEDS: FUROSEMIDE 40 MG TAB PO SCH (07:51)
[2016-11-10] MEDS: LISINOPRIL 5 MG TAB PO SCH (07:52)
[2016-11-10] MEDS: PANTOprazole SOD 40 MG TAB PO SCH (07:52)
--- NOTE | 2016-11-10 08:55 | Cardiology Follow-Up ---
Subjective Subjective Date of Service: Nov 10, 2016. Pt evaluation today including: conversation w/ patient, physical exam, chart review, lab review, review of studies, review of inpatient medication list Additional Details: Pt. with musculoskeletal chest pain last night. No complaints this AM. V- paced rhythm, uncertain of value of QT interval on EKG. No arrhythmias other than atrial fib. Plan cardioversion for tomorrow. Review of Systems Constitutional: No see HPI, No fever, No chills, No sweats, No weight loss, No weakness, No fatigue, No problem reported Respiratory: No see HPI, No cough, No sputum, No wheezing, No shortness of breath, No dyspnea on exertion, No dyspnea at rest, No hemoptysis, No problem reported Cardiac: No see HPI, No chest pain, No orthopnea, No PND, No edema, No claudication, No palpitations, No problem reported Abdomen: No see HPI, No pain, No nausea, No vomiting, No diarrhea, No constipation, No GI bleeding, No problem reported Female : No see HPI, No dysuria, No urinary frequency, No hematuria, No incontinence, No abnormal vaginal bleeding, No vaginal discharge, No problem reported Neurologic: No see HPI, No memory loss, No paralysis, No weakness, No numbness/ tingling, No vertigo, No balance problems, No problem reported Heme: No see HPI, No abnormal bleeding/bruising, No clotting problems, No swollen lymph nodes, No night sweats, No problem reported Endo: No see HPI, No fatigue, No excessive thirst, No excessive urination, No problem reported Skin: No see HPI, No rash, No itch, No new/changing skin lesions, No color change, No bleeding, No problem reported Objective Vital Signs Last Vital Signs Documentation Date Time Temp Pulse Resp B/P (MAP) Pulse Ox O2 Delivery O2 Flow Rate FiO2 11/10/16 08:00 96 Room Air 11/10/16 07:33 36.4 60 20 146/82 (103) Physical Exam: General Appearance: WD/WN, no apparent distress ENT: normal ENT inspection Neck: supple, no adenopathy, no JVD Respiratory/Chest: lungs clear, normal breath sounds Cardiovascular: no JVD, no murmur, + tachycardia, + irregularly irregular Abdomen: soft Neurologic/Psychiatric: alert, oriented x 3 Skin: warm/dry Assessment and Plan Persistent atrial fib. Continue Sotalol load. Plan cardioversion in AM. INR today 4.8. Continue to hold warfarin. Medications: Current Inpatient Medications Medications (Trade) Dose Ordered Sig/Go Route Start Time Stop Time Status Last Admin Dose Admin Acetaminophen (Tylenol Tab) 650 mg Q4H PRN PO 11/09/16 11:15 12/09/16 11:14 11/10/16 05:49 650 MG Al Hydrox/Mg Hydrox/Simethicone (Maalox Max Susp) 15 ml Q4H PRN PO 11/09/16 11:15 12/09/16 11:14 Magnesium Hydroxide (Milk Of Magnesia Susp) 30 ml Q12H PRN PO 11/09/16 11:15 12/09/16 11:14 Zolpidem Tartrate (Ambien Tab) 5 mg HSZ PRN PO 11/09/16 11:15 12/09/16 11:14 Ondansetron HCl (Zofran Inj) 4 mg Q6H PRN IV 11/09/16 11:15 12/09/16 11:14 Morphine Sulfate (MoRPHine SULFATE INJ) 2 mg Q30M PRN IV 11/09/16 11:15 11/23/16 11:14 Aspirin (Ecotrin Tab) 81 mg QAM PO 11/10/16 09:00 12/10/16 08:59 11/10/16 07:51 81 MG Polyethylene (Miralax Powder Packet) 17 gm DAILY PRN PO 11/09/16 11:15 12/09/16 11:14 Atorvastatin Calcium (Lipitor Tab) 10 mg QPM PO 11/09/16 21:00 12/09/16 20:59 11/09/16 20:29 10 MG Furosemide (Lasix Tab) 40 mg QAM PO 11/10/16 09:00 12/10/16 08:59 11/10/16 07:51 40 MG Levothyroxine Sodium (Synthroid Tab) 150 mcg DAILYBB PO 11/10/16 06:00 12/10/16 05:59 11/10/16 05:47 150 MCG Lisinopril (Zestril Tab) 5 mg QAM PO 11/10/16 09:00 12/10/16 08:59 11/10/16 07:52 5 MG Metformin HCl (Glucophage Tab) 500 mg BID PO 11/09/16 21:00 12/09/16 20:59 11/10/16 07:51 500 MG Warfarin Sodium (Coumadin Tab) 5 mg DAILY@1600 PO 11/10/16 16:00 12/10/16 15:59 Pantoprazole Sodium (Protonix Tab) 40 mg QAM PO 11/10/16 09:00 12/10/16 08:59 11/10/16 07:52 40 MG Sotalol HCl (Betapace Tab) 80 mg BID PO 11/09/16 21:00 12/09/16 20:59 11/10/16 07:51 80 MG Test 11/09/16 12:18 11/09/16 20:17 11/10/16 02:13 11/10/16 02:32 White Blood Count 5.63 Red Blood Count 4.18 Hemoglobin 12.0 Hematocrit 36.8 Mean Corpuscular Volume 88.0 Mean Corpuscular Hemoglobin 28.7 Mean Corpuscular Hemoglobin Concent 32.6 RDW Standard Deviation 49.3 RDW Coefficient of Variation 15.3 Platelet Count 198 Mean Platelet Volume 9.9 Prothrombin Time 52.2 55.0 Prothrombin Time INR 4.6 4.8 PTT 63.0 Partial Thromboplastin Ratio 2.4 Sodium Level 140 Potassium Level 3.8 Chloride Level 106 Carbon Dioxide Level 27 Anion Gap 7.0 Blood Urea Nitrogen 22 Creatinine 0.68 Est Creatinine Clear Calc Drug Dose 122.2 Estimated GFR () 104.9 Estimated GFR (Non- 90.5 BUN/Creatinine Ratio 32.2 Random Glucose 101 Calcium Level 8.9 POC Glucose 102 Creatine Kinase MB Ratio Creatine Kinase MB 0.8 Troponin I < 0.015 Test 11/10/16 06:47 POC Glucose 85
[2016-11-10] MEDS: WARFARIN SOD 5 MG TAB PO SCH (16:00)
[2016-11-10] MEDS: ATORVASTATIN 10 MG TAB PO SCH (21:11)
[2016-11-10] MEDS: SODIUM CHLORIDE 0.9% 1000ML 1,000 ML IV SCH (21:12)
[2016-11-11] VITALS (13 sets, daily range): BP systolic 118–148; BP diastolic 39–82; PULSE 59–67; TEMP 36.3–36.9; O2SAT 96–100
[2016-11-11] MEDS: LEVOTHYROXINE 150 MCG TAB PO SCH (05:47)
[2016-11-11] MEDS: SODIUM CHLORIDE 0.9% 1000ML 1,000 ML IV SCH (08:08)
[2016-11-11] MEDS: ASPIRIN 81 MG ECTAB PO SCH (08:09)
[2016-11-11] MEDS: METFORMIN HCL 500 MG TAB PO SCH ×2 (08:09→21:27)
[2016-11-11] MEDS: PANTOprazole SOD 40 MG TAB PO SCH (08:09)
[2016-11-11] MEDS: SOTALOL HCL 80 MG TAB PO SCH ×2 (08:09→21:27)
[2016-11-11] MEDS: FUROSEMIDE 40 MG TAB PO SCH (08:09)
[2016-11-11] MEDS: LISINOPRIL 5 MG TAB PO SCH (08:10)
[2016-11-11 08:49] LABS: INR 3.2 (0.9-1.1)
--- NOTE | 2016-11-11 10:20 | Clinical Documentation Query ---
CLINICAL DOCUMENTATION QUERY 66 year old female who presents to [facility] with complaints of Atrial Fibrillation. In your clinical opinion is this patient being managed for: ( ) Chronic preserved EF(diastolic) CHF maintained with Lasix therapy ( ) Other explanation of clinical findings (Please Explain) ( ) Unable to determine (Please Define) ( ) Need to Discuss ( x ) Not Agree The medical record reflects the following clinical findings, treatment, and risk factors. Clinical Indicators: Patient takes Lasix, Lisinopril, and Metoprolol at home. Treatment: home Lasix continued as inpatient, telemetry, I/O's, daily weights. Risk Factors: Age, Afib, HTN, Please clarify and document your clinical opinion in the progress notes and discharge summary. Terms such as "probable", "suspected", "likely", "questionable", "possible", or "still to be ruled out" are acceptable. IF IN AGREEMENT, YOU MUST DOCUMENT ABOVE DIAGNOSTIC STATEMENT IN DAILY PROGRESS NOTES AND DISCHARGE SUMMARY. This document is not part of the patient's record. Thank You, Grant Sandhu, RN [phone]
--- NOTE | 2016-11-11 11:20 | Cardioversion ---
Electricial Cardioversion Rpt Date of Service: 11/11/16 Electrical Cardioversion Rprt Cardioversion completed. Two hundred joules of energy converting to NSR. Pt. returned to room in stable condition. Anesthesia provided sedation.
--- NOTE | 2016-11-11 11:22 | Cardiology Follow-Up ---
Subjective General Date of Service: Nov 11, 2016. Chief Complaint: Atrial Fib Pt evaluation today including: conversation w/ patient, conversation w/ family , physical exam, chart review, lab review, review of studies, review of inpatient medication list History of Present Illness The patient is a 66 year old female receiving sotalol load. Plan cardioversion today. Allergies Coded Allergies: No Known Allergies (Verified , 09/13/16) Social History Smoking Status: Former Smoker Hx Tobacco Use In Past Year?: No Hx Alcohol Use - Type And Amou: Yes (occasionally ) Hx Substance Use - Type And Am: No Physical Exam Vital Signs Last Vital Signs Documentation Date Time Temp Pulse Resp B/P (MAP) Pulse Ox O2 Delivery O2 Flow Rate FiO2 11/11/16 11:10 60 18 148/65 98 Nasal Cannula 2 11/11/16 07:20 36.3 Physical Exam Constitutional: Level of Distress: NAD Ambulation: ambulating normally Head: normocephalic ENMT: normal ENT inspection Neck: supple, trachea midline, no masses Lungs: Respiratory effort: good air movement Auscultation: breath sounds normal Cardiovascular: Heart Auscultation: RRR, normal S1, normal S2, no murmurs, no rubs Peripheral Pulses: Carotid Pulse: normal on the left, normal on the right Radial Pulse: normal on the left, normal on the right Femoral Pulse: normal on the left, normal on the right Abdomen: Bowel Sounds: normal Inspection & Palpation: soft, non-distended Liver: non-tender Musculoskeletal: normal Extremities: no cyanosis Neurologic: Gait & Station: normal gait, normal station Cranial Nerves: grossly intact Sensation: grossly intact Assessment and Plan Assessment and Plan Persistent Atrial Fibrillation admitted for Sotalol load and cardioversion. Laboratory Results Last 24 Hours Test 11/10/16 11:40 11/10/16 16:27 11/10/16 20:49 11/11/16 07:23 Bedside Glucose 91 mg/dl 96 mg/dl 106 mg/dl 103 mg/dl Test 11/11/16 08:08 Prothrombin Time 36.0 SECONDS Prothromb Time International Ratio 3.2
[2016-11-11] MEDS ORDERED: BTP80 PO (14:39)
--- NOTE | 2016-11-11 14:41 | Discharge Instructions ---
Discharge Instructions Date of Service Nov 11, 2016. Admission Reason for Admission: Atrial Fibrillation Dr Montenegro To Do With Ane Discharge Discharge Diagnosis / Problem: Atrial Fib Discharge Goals Goal(s): Improve function Activity Recommendations Activity Limitations: resume your previous activity . Current Hospital Diet Patient's current hospital diet: AHA Diet (Heart Healthy) Discharge Diet Recommended Diet: AHA Diet (Heart Healthy) Pending Studies Studies pending at discharge: no Medical Emergencies . Who to Call and When: Medical Emergencies: If at any time you feel your situation is an emergency, please call 911 immediately. . Non-Emergent Contact Non-Emergency issues call your: Primary Care Provider . . "Provider Documentation" section prepared by Shay Montenegro. . VTE Core Measure Inpt VTE Proph given/why not?: Warfarin (Coumadin)
--- NOTE | 2016-11-11 14:43 | Anesthesiology Progress Note ---
Anesthesia Post Op Note Date & Time Nov 11, 2016 at 14:43 Vital Signs Pain Intensity: 0 Vital Signs Past 12 Hours Date Time Temp Pulse Resp B/P (MAP) Pulse Ox O2 Delivery O2 Flow Rate FiO2 11/11/16 12:00 96 Room Air 11/11/16 12:00 36.5 60 18 118/64 (82) 98 Room Air 60 11/11/16 11:42 60 18 122/57 (78) 95 Room Air 11/11/16 11:32 60 18 120/56 (77) 95 Room Air 11/11/16 11:22 60 18 125/82 98 Room Air 11/11/16 11:22 60 18 128/56 (80) 95 Room Air 11/11/16 11:19 60 18 127/39 98 Room Air 11/11/16 11:15 60 18 131/65 100 Nasal Cannula 2 11/11/16 11:10 60 18 148/65 98 Nasal Cannula 2 11/11/16 08:00 96 Room Air 11/11/16 07:20 36.3 60 18 132/66 (88) 96 11/11/16 04:57 36.5 59 18 138/78 99 Room Air 11/11/16 04:00 Room Air 11/11/16 03:42 36.5 59 18 138/78 (98) 99 Room Air Notes Mental Status: alert / awake / arousable, participated in evaluation Pt Amnestic to Procedure: Yes Nausea / Vomiting: adequately controlled Pain: adequately controlled Airway Patency, RR, SpO2: stable & adequate BP & HR: stable & adequate Hydration State: stable & adequate Anesthetic Complications: no major complications apparent
[2016-11-11] MEDS: WARFARIN SOD 5 MG TAB PO SCH (16:26)
[2016-11-11] MEDS ORDERED: NURSING VERBAL MED ORDER ONE (16:30)
[2016-11-11] MEDS: ATORVASTATIN 10 MG TAB PO SCH (21:27)
[2016-11-12 03:23] VITALS: BP 131/73; PULSE 66; TEMP 36.5; O2SAT 97
[2016-11-12] MEDS: LEVOTHYROXINE 150 MCG TAB PO SCH (06:10)
[2016-11-12 07:23] VITALS: BP 126/84; PULSE 62; TEMP 36.5; O2SAT 95
[2016-11-12] MEDS: LISINOPRIL 5 MG TAB PO SCH (08:07)
[2016-11-12] MEDS: SOTALOL HCL 80 MG TAB PO SCH (08:07)
[2016-11-12] MEDS: FUROSEMIDE 40 MG TAB PO SCH (08:08)
[2016-11-12] MEDS: METFORMIN HCL 500 MG TAB PO SCH (08:08)
[2016-11-12] MEDS: ASPIRIN 81 MG ECTAB PO SCH (08:08)
[2016-11-12] MEDS: PANTOprazole SOD 40 MG TAB PO SCH (08:09)
[2016-11-12 08:30] LABS: INR 2.4 (0.9-1.1); PROTHROMBIN TIME (PATIENT) 26.1 SECONDS (9.0-12.0)
--- NOTE | 2016-11-12 10:00 | Cardiology Follow-Up ---
Subjective Subjective Date of Service: Nov 12, 2016. Pt evaluation today including: conversation w/ patient, physical exam, chart review, lab review, review of studies, review of inpatient medication list Additional Details: Pt seen and examined, states that she feels fine, anxious for discharge. Denies cp, sob, palpitations, lightheadedness or dizziness. Tele reviewed: sinus with intermittent pacing Review of Systems Constitutional: No see HPI, No fever, No chills, No sweats, No weight loss, No weakness, No fatigue, No problem reported Respiratory: No see HPI, No cough, No sputum, No wheezing, No shortness of breath, No dyspnea on exertion, No dyspnea at rest, No hemoptysis, No problem reported Cardiac: No see HPI, No chest pain, No orthopnea, No PND, No edema, No claudication, No palpitations, No problem reported Abdomen: No see HPI, No pain, No nausea, No vomiting, No diarrhea, No constipation, No GI bleeding, No problem reported Female : No see HPI, No dysuria, No urinary frequency, No hematuria, No incontinence, No abnormal vaginal bleeding, No vaginal discharge, No problem reported Neurologic: No see HPI, No memory loss, No paralysis, No weakness, No numbness/ tingling, No vertigo, No balance problems, No problem reported Heme: No see HPI, No abnormal bleeding/bruising, No clotting problems, No swollen lymph nodes, No night sweats, No problem reported Endo: No see HPI, No fatigue, No excessive thirst, No excessive urination, No problem reported Skin: No see HPI, No rash, No itch, No new/changing skin lesions, No color change, No bleeding, No problem reported Objective Vital Signs Last Vital Signs Documentation Date Time Temp Pulse Resp B/P (MAP) Pulse Ox O2 Delivery O2 Flow Rate FiO2 11/12/16 08:00 Room Air 11/12/16 07:23 36.5 62 20 126/84 (98) 95 11/11/16 11:15 2 Physical Exam: General Appearance: WD/WN, no apparent distress Eyes: bilateral eyes normal inspection, bilateral eyes PERRL, bilateral eyes EOMI ENT: normal ENT inspection, hearing grossly normal, pharynx normal Neck: supple, no adenopathy, thyroid normal, no JVD, no carotid bruits, trachea midline Respiratory/Chest: lungs clear, normal breath sounds Cardiovascular: regular rate, rhythm, no edema, no JVD, no murmur, + gallop/S4 Abdomen: normal bowel sounds, non tender, soft, no organomegaly Extremities: normal inspection, no pedal edema, no calf tenderness Neurologic/Psychiatric: 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 paroxysmal atrial fibrillation s/p cardioversion completed sotalol load qtc stable, actually decreased from 7 ok to d/c to home f/u with Dr. Tavrea in 1 month patient has script
[2016-11-12 10:31] VITALS: BP 126/84; PULSE 62; TEMP 36.5; O2SAT 95
--- NOTE | 2016-11-21 13:10 | Discharge Summary ---
Discharge Summary Admission Date: Nov 09, 2016 at 10:19 Discharge Date: Nov 12, 2016 Discharge Disposition: Home Discharge Instructions Last Recorded Wt (Kilograms): 155.900 Activity Recommendations: no limitations Diet At Discharge: resume previous diet Allergies: Coded Allergies: No Known Allergies (Verified , 09/13/16) Home Health Services: none Special Care: Call your doctor if: * Temperature above 101 degrees * Pain not relieved by pain medicine ordered * There is increased drainage or redness from any incision * You have any unanswered questions or concerns. Avoid all tobacco products. If you need help to stop smoking, call [place] FREE QUITLINE at . This is a free call. Admission HPI The patient is a 66 year old female who presents to [facility] with complaints of Atrial Fibrillation. The patient's primary care provider is Nicolas Riley M.D..Pt. with persistent Atrial fibrillation here to start Sotalol load and if possible cardioversion this admission. Admission Physical Exam Constitutional: Level of Distress: NAD Ambulation: ambulating normally Head: normocephalic ENMT: normal ENT inspection Neck: supple, no adenopathy, thyroid normal, no JVD, no carotid bruits, trachea midline Lungs: Respiratory effort: good air movement Auscultation: breath sounds normal Cardiovascular: Heart Auscultation: RRR, normal S1, normal S2, no murmurs, no rubs Peripheral Pulses: Carotid Pulse: normal on the left, normal on the right Radial Pulse: normal on the left, normal on the right Femoral Pulse: normal on the left, normal on the right Abdomen: Bowel Sounds: normal Inspection & Palpation: soft, non-distended Liver: non-tender Musculoskeletal: normal Extremities: no cyanosis Neurologic: Gait & Station: normal gait, normal station Cranial Nerves: grossly intact Sensation: grossly intact Hospital Course Persistent Atrial Fibrillation admitted for Sotalol load and cardioversion. Total time spent on discharge = <30 minutes This includes examination of the patient, discharge planning, medication reconciliation, and communication with other providers.
== END 2016-11-12 11:02 | disposition home or self-care (01) | DRG 310 ==
LOC: C.2T 10:19
PROVIDERS: ADMIT Internal Medicine Interventional Cardiology; ATTEND Internal Medicine Interventional Cardiology
PROC: 5A2204Z Restoration of Cardiac Rhythm, Single (ICD-10-PCS; principal; 2016-11-11 10:30)
DX: I48.0 Paroxysmal atrial fibrillation (principal); Z87.891 Personal history of nicotine dependence

== ENCOUNTER 2020-10-14 09:28 | Inpatient (IN) ==
[2020-10-14 10:23] LABS: Basophils # (auto) 0.03 K/uL (0-0.2); Basophils % (auto) 0.6 %; Eosinophils # (auto) 0.14 K/uL (0-0.5); Eosinophils % (auto) 2.6 %; Immature Granulocytes # (auto) 0.01 K/uL (0.00-0.02); Immature Granulocytes % (auto) 0.2 %; Lymphocytes # (auto) 1.14 K/uL (1.2-3.4); Lymphocytes % (auto) 21.3 %; Mean Corpuscular Hemoglobin 29.8 pg (25-34); Mean Corpuscular Hgb Conc 32.6 g/dL (32-36); Mean Corpuscular Volume 91.5 fL (80-100); Mean Platelet Volume 10.6 fL (7.4-10.4); Monocytes # (auto) 0.55 K/uL (0.11-0.59); Monocytes % (auto) 10.3 %; Neutrophils # (auto) 3.48 K/uL (1.4-6.5); Platelet Count 204 K/uL (130-400); RDW Standard Deviation 50.7 fL (36.4-46.3); White Blood Count 5.35 K/uL (4.8-10.8)
[2020-10-14 10:39] LABS: Partial Thromboplastin Ratio 1.7; Partial Thromboplastin Time 44.5 Seconds (21.0-31.0)
--- NOTE | 2020-10-14 10:39 | XRay Report ---
XR chest 1V portable CLINICAL HISTORY: Atypical chest pain COMPARISON STUDY: 10/11/2013 FINDINGS: The heart is mildly enlarged. There is mild interstitial thickening without evidence of ove rt failure. There is borderline elevation right hemidiaphragm. There is no focal pulmonary consolidat ion. There are postsurgical changes of midline sternotomy. There is a left subclavian dual-chamber ce ntral venous pacemaker.[ IMPRESSION: Stable mild cardiomegaly. Mild interstitial prominence without evidence of overt failure. No evidence of focal pulmonary consolidation ACT 112: Negative or not required by law. Electronically signed by: Ahmet Mckeon M.D. 10/14/2020 10:38 AM
--- NOTE | 2020-10-14 10:47 | History & Physical Report ---
Date of Service October 14, 2020 Assessment & Plan (1) Atrial fibrillation: This is a 70-year-old female who has significant past medical history of T2DM, HTN, HLD, chronic HFpEF, TBS status post pacemaker, PAF on sotalol and anticoagulated on warfarin, FERNY, hypothyroidism, history of uterine cancer who presents to ED at the referral cardiology for increased sotalol dosing. [id number] score of 5 (age, female, CHF, hypertension, diabetes) admit to PCU for increased sotalol loading per cardiology consult cardiology -Dr. Montenegro aware Had previous DCCV and sotalol loading on 12/01, repeat DCCV on 10/01/2019, recurrent PAF on 07/2020 Mostly asymptomatic but does complain of [place] and fatigue Patient with history of TBS status post pacemaker in 2016, interrogation revealed A. fib with approximately 55-day burden, she did self convert for about 3 weeks but return to A. fib. Continue warfarin, INR pending She did not take her morning sotalol dose, will await cardiology recommendations for increased dosing qtc 510ms today, avoid qtc prolonging agents Last echo 10/08/2019: EF 55 to 59%, grade 1 diastolic dysfunction, left atrium mildly enlarged, sigmoid septum, septal motion abnormal consistent with IVCD (2) Chronic heart failure with preserved ejection fraction (HFpEF): Euvolemic, compensated Daily weight, strict I&O Heart healthy low-sodium diet Continue Lasix and lisinopril (3) DM (diabetes mellitus): Controlled, last A1c 6.3 on 10/08/2019 Obtain A1c in a.m. 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 Wilkinson, please see addendum History of Present Illness Chief Complaint: Referred by cardiology for increase sotalol dosing. Primary Care Provider: Nicolas Riley MD This is a 70-year-old female who has significant past medical history of T2DM, HTN, HLD, chronic HFpEF, TBS status post pacemaker, PAF on sotalol and anticoagulated on warfarin, FERNY, hypothyroidism, history of uterine cancer who presents to ED at the referral cardiology for increased sotalol dosing. She was seen and evaluated in cardiology clinic in 10/07. Of significance patient does have history of external DCCV and sotalol loading on 12/01 with repeat DCCV on 10/01/2019 and recurrence of PAF on 07/2020. Patient had a device interrogation on 10/07 which showed atrial fibrillation and A. fib burden was about 55 days when she self converted for about 3 weeks and she is now back in A. fib. Patient has been compliant with all medications and INR has been stable for many months. She does have history of TBS which pacemaker was implanted on 09/13/2026. Due to A. fib burden it was recommended patient be admitted for 3 days of increased sotalol dosage and proceed with DCCV. She was supposed to be a direct admission but secondary to limited availability she presents via the ER. Currently she feels well and offers no acute complaints. She does admit to fatigue and [place] secondary to A. fib. She denies any recent illness, fever, chills, sweats, lightheadedness, dizziness, syncope, chest pain, short breath at rest, cough, hemoptysis, nausea, vomiting, abdominal pain, change in bowel or urinary habits. She does take Lasix secondary to chronic HFpEF and she denies any significant weight gain. She admits to losing a few pounds. She denies any increased lower extremity edema. This morning she took her Lasix and levothyroxine, but did not take morning sotalol. She has been compliant and has not missed any doses of Coumadin. CBC and CMP generally unremarkable, troponin WNL. Chest x-ray with cardiomegaly but no acute abnormality. Allergies Allergy/AdvReac Type Severity Reaction Status Date / Time No Known Allergies Allergy Verified 10/14/20 10:22 Home Medications Medication Instructions Recorded Confirmed Type atorvastatin 10 mg PO QPM 08/26/19 10/14/20 History furosemide 40 mg PO QAM 08/26/19 10/14/20 History levothyroxine 150 mcg PO DAILY@0630 08/26/19 10/14/20 History lisinopril 5 mg PO QAM 08/26/19 10/14/20 History metformin 500 mg PO QAM 08/26/19 10/14/20 History multivitamin 1 tab PO QAM 08/26/19 10/14/20 History sotalol 80 mg PO BID 08/26/19 10/14/20 History warfarin [Jantoven] 5 mg PO SUTUWETHSA 08/26/19 10/14/20 History furosemide 20 mg PO DAILY@1400 10/14/20 10/14/20 History warfarin 2.5 mg PO MOFR 10/14/20 10/14/20 History Past Med/Surg History Medical History Atrial fibrillation Congestive heart failure Diabetes mellitus, type 2 Fatty liver History of cardioversion 2016 [facility] Hx of cancer of uterus SX AND RADIATION Hx of tachycardia-bradycardia syndrome Hyperlipidemia Hypertension Hypothyroidism Mild valvular heart disease Pacemaker INSERTED 2016 FOR TACHY/SHRUTHI SYNDROME (MEDTRONIC DEVICE) Surgical History H/O heart surgery ATRIAL SEPTAL DEFECT REPAIRED 1974 [facility] H/O total hysterectomy [place] BSO with omentecomy for stage 1 endometrial ca History of appendectomy History of cardiac cath 1974 (NO STENTS) History of cardiac radiofrequency ablation 2011 [facility] History of cholecystectomy History of colonoscopy History of tonsillectomy Family History Mother Family history of diabetes mellitus Family history of esophageal cancer Social History Smoking Status: Former smoker Second Hand Exposure: No; Hx Alcohol Use: No Hx Substance Use: No Preferred Language: Tamazight Communication Ability: Effective Box Toe Stitcher Required: No Beliefs That Will Affect Care: None marital status: Single Current Living Situation: Other Current Living Situation Comment: 1 ROOMATE Other Information That Helps Us Care for You: No Feels Safe at Home: Yes Safety Concerns: Feels Safe At This Time Assistive Devices: Glasses Review of Systems Review of Systems: All systems reviewed & are unremarkable except as noted in HPI & below Physical Exam Physical Exam: Constitutional: WD/WN, morbidly obese, female, vitals as above, NAD, sitting up in bed, pleasant, conversing easily Head: Normocephalic, Atraumatic Eyes: PERRL, conjunctivae normal, anicteric sclerae ENMT: external ear and nose normal, oropharynx normal Neck: trachea midline, no thyromegaly normal visual inspection Respiratory: normal respiratory effort, lungs clear to auscultation, no wheeze, rales, rhonchi. Normal insp/exp effort, no accessory muscle use Cardiovascular: Regular rate, irregular rhythm, no murmur, bilateral trace pretibial edema, bilateral venous stasis changes Vessels: no JVD or carotid bruit Chest: normal inspection of chest Abdomen: normal bowel sounds, soft, nontender, no hepatosplenomegaly Musculoskeletal: no cyanosis or clubbing, extremities motor strength 5/5 Skin: no rashes, warm and dry normal turgor Neurologic: PERRL, EOMI, accommodation nl, no face palsy, no dysarthria CN's II-XI intact bilaterally and moves all extremities Psychiatric: A+Ox3, euthymic affect Lymphatic: no cervical or axillary lymphadenopathy : deferred Results & Data Results & [facility] ([facility]) Vital Signs (Past 12 Hours) Vital Signs Temp Pulse Pulse Resp BP BP Pulse Ox 10/14/20 10:30 68 20 136/71 97 10/14/20 10:20 62 20 99 10/14/20 10:10 62 20 97 10/14/20 10:00 71 18 98 10/14/20 09:54 71 23 98 10/14/20 09:50 69 70 17 157/75 H 157/75 H 97 10/14/20 09:49 78 22 95 10/14/20 09:40 36 C L 86 18 175/76 H 100 Code Status & VTE Plan Code Status Full Code VTE Prophylaxis Plan VTE Prophylaxis will be ordered: No Supervising Physician Co-Signing Physician Notes Patient seen and examined by me, care coordinated with Aneta Chen PA-C, please refer to her note above for further detail. This is a 70-year-old female with T2DM, HTN, HLD, chronic HFpEF, TBS status post pacemaker, PAF/ recurrent Afib on sotalol and anticoagulated on warfarin, FERNY, who presents at the referral from cardiology for increased sotalol dosing. Patient is currently lying in bed, in no acute distress. She is alert and oriented and answering questions appropriately. She is breathing comfortably on room air, saturating 97%. Heart sounds are irregular. Abdomen soft, obese, nontender, nondistended, with positive bowel sounds. There is chronic trace lower extremity edema. Patient moves extremities spontaneously and w/o difficulty. Skin is warm and dry. Patient admitted for increase of sotalol, possible cardioversion at the end of the week. Cardiology was contacted. Sarah Wilkinson MD
[2020-10-14 10:51] LABS: BUN Creatinine Ratio 34.1 (10-20); Blood Urea Nitrogen 22 mg/dl (7-18); Carbon Dioxide 22 mmol/L (21-32); Chloride 105 mmol/L (98-107); Creatinine Clr Calc Pharmacy 123.9 ml/min; Est GFR (African American) 104.1 ml/min; Est GFR (Non-African American) 89.8 ml/min; Glucose 97 mg/dl (70-99); Lipase 98 U/L (73-393); Potassium 4.2 mmol/L (3.5-5.1); Sodium 134 mmol/L (136-145); Troponin I < 0.015 ng/ml (0-0.045)
[2020-10-14 11:33] LABS: INR 3.2 (0.9-1.1); Prothrombin Time 29.5 Seconds (9.0-12.0)
--- NOTE | 2020-10-14 14:00 | Cardiology Consultation ---
Date of Consultation October 14, 2020 Assessment & Plan (1) Atrial fibrillation: (2) Encounter for monitoring anti-arrhythmic therapy: The patient has been on 80 mg of sotalol twice daily. She is now admitted and will receive 120 mg of sotalol twice daily. If she tolerates up titration she will have a repeat cardioversion later this week. Continue warfarin at current dosage. History of Present Illness History of Present Illness This is a 70-year-old female with a history of recurrent atrial fibrillation. She has had previous cardioversion and has a permanent pacemaker. She has reverted back into atrial fibrillation and is now admitted for increased dosing of sotalol and potential repeat cardioversion. She denies progressive shortness of breath. She has had no chest pain or dizziness. Cardiac problems 1. Paroxysmal Afib, status post elective external DCCV and sotalol loading 11/2016, repeat direct current cardioversion 10/01/2019, recurrent PAF 07/2020 2. Moderate mixed valvular heart disease 3. Hypertension 4. Dyslipidemia 5. Chronic diastolic heart failure 6. History of tachy-shruthi syndrome status post permanent pacemaker 09/13/2016 7. History of a flutter status post ablation 8. History of ASD repair at age 24 Allergies Allergy/AdvReac Type Severity Reaction Status Date / Time No Known Allergies Allergy Verified 10/14/20 10:22 Home Medications Medication Instructions Recorded Confirmed Type atorvastatin 10 mg PO QPM 08/26/19 10/14/20 History furosemide 40 mg PO QAM 08/26/19 10/14/20 History levothyroxine 150 mcg PO DAILY@0630 08/26/19 10/14/20 History lisinopril 5 mg PO QAM 08/26/19 10/14/20 History metformin 500 mg PO QAM 08/26/19 10/14/20 History multivitamin 1 tab PO QAM 08/26/19 10/14/20 History sotalol 80 mg PO BID 08/26/19 10/14/20 History warfarin [Jantoven] 5 mg PO SUTUWETHSA 08/26/19 10/14/20 History furosemide 20 mg PO DAILY@1400 10/14/20 10/14/20 History warfarin 2.5 mg PO MOFR 10/14/20 10/14/20 History Patient History Medical History Atrial fibrillation Congestive heart failure Diabetes mellitus, type 2 Fatty liver History of cardioversion 2016 [facility] Hx of cancer of uterus SX AND RADIATION Hx of tachycardia-bradycardia syndrome Hyperlipidemia Hypertension Hypothyroidism Mild valvular heart disease Pacemaker INSERTED 2017 FOR TACHY/SHRUTHI SYNDROME (MEDTRONIC DEVICE) Surgical History H/O heart surgery ATRIAL SEPTAL DEFECT REPAIRED 1974 [facility] H/O total hysterectomy [place] BSO with omentecomy for stage 1 endometrial ca History of appendectomy History of cardiac cath 1974 (NO STENTS) History of cardiac radiofrequency ablation [facility] History of cholecystectomy History of colonoscopy History of tonsillectomy Family History Mother Family history of diabetes mellitus Family history of esophageal cancer Social History Smoking Status: Former smoker Second Hand Exposure: No; Hx Alcohol Use: No Hx Substance Use: No Preferred Language: Sinhala Communication Ability: Effective Youth Services Specialist Required: No Beliefs That Will Affect Care: None marital status: Single Current Living Situation: Other Current Living Situation Comment: 1 ROOMATE Other Information That Helps Us Care for You: No Feels Safe at Home: Yes Safety Concerns: Feels Safe At This Time Assistive Devices: Glasses Review of Systems Review of Systems: All systems reviewed & are unremarkable except as noted in HPI & below Nothing additional to add. Physical Exam Physical Exam: General: no acute distress and stated age Head: normocephalic, no masses, lesions, tenderness or abnormalities Eyes: conjunctiva are pink and non-injected, sclera clear Neck: supple, no adenopathy, no bruits, normal jugular venous pulse, no hepatojugular reflux Chest: normal shape and normal respiratory effort Lungs: clear to auscultation and percussion Cardiac Exam: - regular rate & rhythm, no murmurs gallops or rubs - normal S1, normal S2 Pulses: 2(+) throughout Abdomen: abdomen soft, non-tender, no abnormal masses and no hepatosplenomegaly Musculoskeletal: no gait disturbance, no joint inflammation, no deforming arthritis Extremities: no edema and no cyanosis Neuro: grossly normal exam Results & Data ([facility]) Vital Signs (Past 12 Hours) Vital Signs Temp Pulse Pulse Resp BP BP Pulse Ox 10/14/20 12:40 63 22 96 10/14/20 12:31 70 17 98 10/14/20 12:30 63 20 132/65 95 10/14/20 12:20 67 22 94 10/14/20 12:10 66 20 97 10/14/20 12:01 70 17 91 10/14/20 12:00 68 18 123/79 96 10/14/20 11:50 22 94 10/14/20 11:40 62 22 97 10/14/20 11:31 60 23 98 10/14/20 11:30 60 24 132/73 97 10/14/20 11:20 66 26 H 98 10/14/20 11:10 66 21 96 10/14/20 11:01 68 20 97 10/14/20 11:00 74 22 139/75 97 10/14/20 10:50 62 22 95 10/14/20 10:40 62 22 96 10/14/20 10:31 71 22 97 10/14/20 10:30 68 20 136/71 97 10/14/20 10:20 62 20 99 10/14/20 10:10 62 20 97 10/14/20 10:00 71 18 98 10/14/20 09:54 71 23 98 10/14/20 09:50 69 70 17 157/75 H 157/75 H 97 10/14/20 09:49 78 22 95 10/14/20 09:40 36 C L 86 18 175/76 H 100 Laboratory Results Laboratory Results - last 24 hr 10/14/20 10/14/20 10/14/20 10:00 10:00 10:00 WBC 5.35 RBC 4.70 Hgb 14.0 Hct 43.0 MCV 91.5 MCH 29.8 MCHC 32.6 RDW Std Deviation 50.7 H RDW Coeff of Tylor 15.0 H Plt Count 204 MPV 10.6 H Immature Gran % (Auto) 0.2 Neut % (Auto) 65.0 Lymph % (Auto) 21.3 [place] % (Auto) 10.3 Eos % (Auto) 2.6 Baso % (Auto) 0.6 Neut # (Auto) 3.48 Lymph # (Auto) 1.14 L [place] # (Auto) 0.55 Eos # (Auto) 0.14 Baso # (Auto) 0.03 Immature Gran # (Auto) 0.01 PT INR APTT 44.5 H PTT Ratio 1.7 Sodium 134 L Potassium 4.2 Chloride 105 Carbon Dioxide 22 Anion Gap 8.0 BUN 22 H Creatinine 0.64 Est Cr Clr Drug Dosing 123.9 Est GFR ( Amer) 104.1 Est GFR (Non-Af Amer) 89.8 BUN/Creatinine Ratio 34.1 H Glucose 97 Calcium 9.0 Troponin I < 0.015 Lipase 98 Specimen Hemolysis COVID-19 Eval Order SARS-CoV-2 (PCR) 10/14/20 10/14/20 10/14/20 10:00 10:26 10:26 WBC RBC Hgb Hct MCV MCH MCHC RDW Std Deviation RDW Coeff of Tylor Plt Count MPV Immature Gran % (Auto) Neut % (Auto) Lymph % (Auto) [place] % (Auto) Eos % (Auto) Baso % (Auto) Neut # (Auto) Lymph # (Auto) [place] # (Auto) Eos # (Auto) Baso # (Auto) Immature Gran # (Auto) PT 29.5 H INR 3.2 H APTT PTT Ratio Sodium Potassium Chloride Carbon Dioxide Anion Gap BUN Creatinine Est Cr Clr Drug Dosing Est GFR ( Amer) Est GFR (Non-Af Amer) BUN/Creatinine Ratio Glucose Calcium Troponin I Lipase Specimen Hemolysis COVID-19 Eval Order Covid19 at [facility] SARS-CoV-2 (PCR) NEGATIVE
[2020-10-14] MEDS ORDERED: GLUCOSE 10 TABS/TUBE PO PRN (14:27)
[2020-10-14] MEDS ORDERED: MAGNESIUM HYDROXIDE SUSP 30 ML UDC PO PRN (14:27)
[2020-10-14] MEDS ORDERED: ACETAMINOPHEN 325 MG TAB PO PRN (14:27)
[2020-10-14] MEDS ORDERED: GLUCAGON FOR INJ 1 MG VIAL SQ PRN (14:27)
[2020-10-14] MEDS ORDERED: GLUCOSE 40% GEL 15 GM TUBE PO PRN (14:27)
[2020-10-14] MEDS ORDERED: POLYETHYLENE (MIRALAX) 17 GM PACK PO PRN (14:27)
[2020-10-14] MEDS ORDERED: WARFARIN SOD 5 MG TAB PO SCH (14:27)
[2020-10-14] MEDS ORDERED: ALUMINUM/MAGNESIUM SUSP 30 ML UDC PO PRN (14:27)
[2020-10-14] MEDS ORDERED: DEXTROSE 50% 50 ML SYRINGE IV PRN (14:27)
[2020-10-14] MEDS ORDERED: CARBOHYDRATES FOR HYPOGLYCEMIA PO PRN (14:27)
[2020-10-14] MEDS ORDERED: FUROSEMIDE 40 MG/4 ML VIAL IV ONE (16:02)
[2020-10-14] MEDS: FUROSEMIDE 20 MG TAB PO SCH (16:05)
--- NOTE | 2020-10-14 17:17 | Emergency Department Note ---
History of Present Illness General Chief complaint: Illness Stated complaint: ABN LABS, REF'D BY DOC Time Seen by Provider: 10/14/20 09:44 History of Present Illness Provider complaint: Referral for admission 70-year-old female with history of atrial fibrillation presents emergency depart ment at the request of Dr. Colbert for admission for sotalol infusion. Patient reports no chest pain, difficulty breathing, palpitations, fevers at this time. Home Medications Medication Instructions Recorded Confirmed Type atorvastatin 10 mg PO QPM 08/26/19 10/14/20 History furosemide 40 mg PO QAM 08/26/19 10/14/20 History levothyroxine 150 mcg PO DAILY@0630 08/26/19 10/14/20 History lisinopril 5 mg PO QAM 08/26/19 10/14/20 History metformin 500 mg PO QAM 08/26/19 10/14/20 History multivitamin 1 tab PO QAM 08/26/19 10/14/20 History sotalol 80 mg PO BID 08/26/19 10/14/20 History warfarin [Jantoven] 5 mg PO SUTUWETHSA 08/26/19 10/14/20 History furosemide 20 mg PO DAILY@1400 10/14/20 10/14/20 History warfarin 2.5 mg PO MOFR 10/14/20 10/14/20 History Allergies Allergy/AdvReac Type Severity Reaction Status Date / Time No Known Allergies Allergy Verified 10/14/20 10:22 Past Med/Surg History Medical History Atrial fibrillation Congestive heart failure Diabetes mellitus, type 2 Fatty liver History of cardioversion 2016 [facility] Hx of cancer of uterus SX AND RADIATION Hx of tachycardia-bradycardia syndrome Hyperlipidemia Hypertension Hypothyroidism Mild valvular heart disease Pacemaker INSERTED 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 (MEDTRONIC DEVICE) Surgical History H/O heart surgery ATRIAL SEPTAL DEFECT REPAIRED 1974 [facility] H/O total hysterectomy [place] BSO with omentecomy for stage 1 endometrial ca History of appendectomy History of cardiac cath 1974 (NO STENTS) History of cardiac radiofrequency ablation 2011 [facility] History of cholecystectomy History of colonoscopy History of tonsillectomy Family History Mother Family history of diabetes mellitus Family history of esophageal cancer Social History Smoking Status: Former smoker Second Hand Exposure: No; Hx Alcohol Use: No Hx Substance Use: No Preferred Language: Maldivian Communication Ability: Effective Nutrition Services Aide Required: No Beliefs That Will Affect Care: None marital status: Single Current Living Situation: Other Current Living Situation Comment: 1 ROOMATE Other Information That Helps Us Care for You: No Feels Safe at Home: Yes Safety Concerns: Feels Safe At This Time Assistive Devices: Glasses Review of Systems A total of 6 systems reviewed and were otherwise negative Physical Exam Vital Signs Vital Signs - 24 hr 10/14/20 09:40 10/14/20 09:49 10/14/20 09:50 Temperature 36 C L Temperature Source Temporal Artery Scan Pulse Rate 86 78 69 Pulse Rate [Right Finger] 70 Pulse Rate from SpO2 Sensor 73 Pulse Strength [Right Finger] Normal Respiratory Rate 18 22 17 Respiratory Effort / Characteristics Non-Labored Spontaneous Non-Labored Spontaneous Respiratory Depth Normal Normal Respiratory Pattern Regular Blood Pressure 175/76 H 157/75 H Blood Pressure [Left Arm] 157/75 H Blood Pressure Mean 109 102 Blood Pressure Mean [Left Arm] 102 Blood Pressure Position [Left Arm] Lying Pulse Oximetry 100 95 97 Oxygen Delivery Method Room Air Room Air Room Air Sepsis Recent Fever Within 48 Hours No Sepsis New/Unexplained Change in Mental Status No Sepsis Action Taken by Nursing No Action Required 10/14/20 09:54 10/14/20 10:00 10/14/20 10:10 Temperature Temperature Source Pulse Rate 71 71 62 Pulse Rate [Right Finger] Pulse Rate from SpO2 Sensor 70 71 64 Pulse Strength [Right Finger] Respiratory Rate 23 18 20 Respiratory Effort / Characteristics Respiratory Depth Respiratory Pattern Blood Pressure Blood Pressure [Left Arm] Blood Pressure Mean Blood Pressure Mean [Left Arm] Blood Pressure Position [Left Arm] Pulse Oximetry 98 98 97 Oxygen Delivery Method Sepsis Recent Fever Within 48 Hours Sepsis New/Unexplained Change in Mental Status Sepsis Action Taken by Nursing 10/14/20 10:20 10/14/20 10:30 10/14/20 10:31 Temperature Temperature Source Pulse Rate 62 68 71 Pulse Rate [Right Finger] Pulse Rate from SpO2 Sensor 62 69 67 Pulse Strength [Right Finger] Respiratory Rate 20 20 22 Respiratory Effort / Characteristics Respiratory Depth Respiratory Pattern Blood Pressure 136/71 Blood Pressure [Left Arm] Blood Pressure Mean 92 Blood Pressure Mean [Left Arm] Blood Pressure Position [Left Arm] Pulse Oximetry 99 97 97 Oxygen Delivery Method Sepsis Recent Fever Within 48 Hours Sepsis New/Unexplained Change in Mental Status Sepsis Action Taken by Nursing Physical Exam GENERAL: She is oriented to person, place, and time. She appears well-developed and well-nourished. She does not appear distressed. HENT: Exam performed. -Head: Normocephalic and atraumatic. -Right Ear: External ear normal. No mastoid tenderness. -Left Ear: External ear normal. No mastoid tenderness. -Mouth/Throat: The oropharynx is clear and moist. No trismus in the jaw. No dental abscesses or uvula swelling. No oropharyngeal exudate or tonsillar abscesses. EYES: Conjunctivae and EOM are normal. Pupils are equal, round, and reactive to light. Right eye exhibits no discharge. Left eye exhibits no discharge. No scleral icterus. NECK: Normal range of motion. Neck supple. No JVD present. No spinous process tenderness present. No carotid bruit present. No rigidity. No tracheal deviation and normal range of motion present. No Brudzinski's sign and no Kernig's sign noted. CV: Normal rate, regular rhythm, normal heart sounds and intact distal pulses. There is no peripheral edema. Palpable radial pulses bue. PULM/CHEST: Effort normal and breath sounds normal. No respiratory distress. No stridor. She has no wheezes. She has no rales. -Chest Wall: She exhibits no tenderness. ABD: The abdomen is soft and obese. Bowel sounds are normal. She has no distension. No mass is present. There is no tenderness. There is no rebound, no guarding, no Deluna's sign and no tenderness at McBurney's point. Rovsig negative MUSC/SKEL: Normal range of motion. There is no peripheral edema, tenderness or deformity. LYMPH: No cervical adenopathy. NEURO: She is alert and oriented to person, place, and time. She has normal strength. No cranial nerve deficit or sensory deficit. Coordination and gait normal. GCS eye subscore is 4. GCS verbal subscore is 5. GCS motor subscore is 6. Cerebellar tests wnl. SKIN: Skin is warm and dry. She is not diaphoretic. PSYCH: She has a normal mood and affect. Behavior is normal. Judgment and thought content normal. Course Course 943: The patient was evaluated in room C10. A complete history and physical exam was performed Cardiac monitoring: An order was placed for continuous cardiac monitoring. The monitor shows a rate of 60 with paced rhythm She will be admitted to the [facility] team for sotalol infusion by cardiology. Administered Medications Furosemide (Furosemide 20 Mg Tab) 20 mg PO DAILY@1400 [facility] Stop: 11/13/20 14:26 Last Admin: 10/14/20 16:05 Dose: Not Given Documented by: [id number] Discontinued Medications Furosemide (Furosemide 40 Mg/4 Ml Vial) Confirm Administered Dose 40 mg IV .STK- MED ONE Stop: 10/14/20 16:03 Last Admin: 10/14/20 16:04 Dose: 20 mg Documented by: [id number] Medical Decision Making Laboratory Data Result diagrams: 10/14/20 10:00 10/14/20 10:00 Lab Results 10/14/20 10/14/20 10/14/20 Range/Units 10:00 10:00 10:00 WBC 5.35 (4.8-10.8) K/uL RBC 4.70 (4.2-5.4) M/uL Hgb 14.0 (12.0-16.0) g/dL Hct 43.0 (37-47) % MCV 91.5 (80-100) fL MCH 29.8 (25-34) pg MCHC 32.6 (32-36) g/dL RDW Std Deviation 50.7 H (36.4-46.3) fL RDW Coeff of Tylor 15.0 H (11.5-14.5) % Plt Count 204 (130-400) K/uL MPV 10.6 H (7.4-10.4) fL Immature Gran % (Auto) 0.2 % Neut % (Auto) 65.0 % Lymph % (Auto) 21.3 % [place] % (Auto) 10.3 % Eos % (Auto) 2.6 % Baso % (Auto) 0.6 % Neut # (Auto) 3.48 (1.4-6.5) K/uL Lymph # (Auto) 1.14 L (1.2-3.4) K/uL [place] # (Auto) 0.55 (0.11-0.59) K/uL Eos # (Auto) 0.14 (0-0.5) K/uL Baso # (Auto) 0.03 (0-0.2) K/uL Immature Gran # (Auto) 0.01 (0.00-0.02) K/uL PT (9.0-12.0) Seconds INR (0.9-1.1) APTT 44.5 H (21.0-31.0) Seconds PTT Ratio 1.7 Sodium 134 L (136-145) mmol/L Potassium 4.2 (3.5-5.1) mmol/L Chloride 105 (98-107) mmol/L Carbon Dioxide 22 (21-32) mmol/L Anion Gap 8.0 (3-11) BUN 22 H (7-18) mg/dl Creatinine 0.64 (0.6-1.2) mg/dl Est Cr Clr Drug Dosing 123.9 ml/min Est GFR ( Amer) 104.1 ml/min Est GFR (Non-Af Amer) 89.8 ml/min BUN/Creatinine Ratio 34.1 H (10-20) Glucose 97 (70-99) mg/dl Calcium 9.0 (8.5-10.1) mg/dl Troponin I < 0.015 (0-0.045) ng/ml Lipase 98 (73-393) U/L Specimen Hemolysis COVID-19 Eval Order SARS-CoV-2 (PCR) (Negative) 10/14/20 10/14/20 10/14/20 Range/Units 10:00 10:26 10:26 WBC (4.8-10.8) K/uL RBC (4.2-5.4) M/uL Hgb (12.0-16.0) g/dL Hct (37-47) % MCV (80-100) fL MCH (25-34) pg MCHC (32-36) g/dL RDW Std Deviation (36.4-46.3) fL RDW Coeff of Tylor (11.5-14.5) % Plt Count (130-400) K/uL MPV (7.4-10.4) fL Immature Gran % (Auto) % Neut % (Auto) % Lymph % (Auto) % [place] % (Auto) % Eos % (Auto) % Baso % (Auto) % Neut # (Auto) (1.4-6.5) K/uL Lymph # (Auto) (1.2-3.4) K/uL [place] # (Auto) (0.11-0.59) K/uL Eos # (Auto) (0-0.5) K/uL Baso # (Auto) (0-0.2) K/uL Immature Gran # (Auto) (0.00-0.02) K/uL PT 29.5 H (9.0-12.0) Seconds INR 3.2 H (0.9-1.1) APTT (21.0-31.0) Seconds PTT Ratio Sodium (136-145) mmol/L Potassium (3.5-5.1) mmol/L Chloride (98-107) mmol/L Carbon Dioxide (21-32) mmol/L Anion Gap (3-11) BUN (7-18) mg/dl Creatinine (0.6-1.2) mg/dl Est Cr Clr Drug Dosing ml/min Est GFR ( Amer) ml/min Est GFR (Non-Af Amer) ml/min BUN/Creatinine Ratio (10-20) Glucose (70-99) mg/dl Calcium (8.5-10.1) mg/dl Troponin I (0-0.045) ng/ml Lipase (73-393) U/L Specimen Hemolysis COVID-19 Eval Order Covid19 at [facility] SARS-CoV-2 (PCR) NEGATIVE (Negative) Imaging Data Radiologist's Impression: Chest X-Ray 10/14/20 09:45 XR chest 1V portable CLINICAL HISTORY: Atypical chest pain COMPARISON STUDY: 10/11/2013 FINDINGS: The heart is mildly enlarged. There is mild interstitial thickening without evidence of overt failure. There is borderline elevation right hemidiaphragm. There is no focal pulmonary consolidation. There are postsurgical changes of midline sternotomy. There is a left subclavian dual-chamber central venous pacemaker.[ IMPRESSION: Stable mild cardiomegaly. Mild interstitial prominence without evidence of overt failure. No evidence of focal pulmonary consolidation ACT 112: Negative or not required by law. Electronically signed by: Ahmet Mckeon M.D. 10/14/2020 10:38 AM MDM Narrative The patient was evaluated in room C10. A complete history and physical exam was performed Cardiac monitoring: An order was placed for continuous cardiac monitoring. The monitor shows a rate of 60 with paced rhythm She will be admitted to the [facility] team for sotalol infusion by cardiology. Impression & Plan Atrial fibrillation Discharge Plan Visit Data Chief Complaint: Illness Stated Complaint: ABN LABS, REF'D BY DOC ED Provider: Garrick Huitron Discharge Problem: Atrial fibrillation Patient Disposition: Admitted As Inpatient Discharge Instructions Interventions: ED Discharge Assessment Last Done: 10/14/20 13:21 Discharge Problem: Atrial fibrillation Qualifiers: Atrial fibrillation type: unspecified Qualified Code(s): I48.91 - Unspecified atrial fibrillation
[2020-10-14] MEDS: ATORVASTATIN 10 MG TAB PO SCH (21:49)
[2020-10-14] MEDS: SOTALOL HCL 80 MG TAB PO SCH (21:49)
[2020-10-15] MEDS: LEVOTHYROXINE SODIUM 150 MCG TABLET PO SCH (06:02)
--- NOTE | 2020-10-15 08:09 | Hospitalist Progress Note ---
Date of Service October 15, 2020 Assessment & Plan (1) Atrial fibrillation: This is a 70-year-old female who has significant past medical history of T2DM, HTN, HLD, chronic HFpEF, TBS status post pacemaker, PAF on sotalol and anticoagulated on warfarin, FERNY, hypothyroidism, history of uterine cancer who presents to ED at the referral cardiology for increased sotalol dosing. [id number] score of 5 (age, female, CHF, hypertension, diabetes) admit to PCU for increased sotalol loading per cardiology consult cardiology -Dr. Montenegro aware Had previous DCCV and sotalol loading on 12/01, repeat DCCV on 10/01/2019, recurrent PAF on 07/2020 Mostly asymptomatic but does complain of [place] and fatigue Patient with history of TBS status post pacemaker in 2016, interrogation revealed A. fib with approximately 55-day burden, she did self convert for about 3 weeks but return to A. fib. Continue warfarin, INR therapeutic qtc 510ms today, avoid qtc prolonging agents Last echo 10/08/2019: EF 55 to 59%, grade 1 diastolic dysfunction, left atrium mildly enlarged, sigmoid septum, septal motion abnormal consistent with IVCD Patient was started on increased dose of sotalol, tolerating well, cardiology closely following, likely cardioversion tomorrow (2) Chronic heart failure with preserved ejection fraction (HFpEF): Euvolemic, compensated Daily weight, strict I&O Heart healthy low-sodium diet Continue Lasix and lisinopril (3) DM (diabetes mellitus): Controlled, last A1c 6.3 on 10/08/2019 Current A1c 6.3% Hold Metformin Diabetic diet Monitor BSG, currently in 90s Will not add insulin coverage at this point, if patient consistently hyperglycemic we will then add (4) Hypertension: Blood pressure controlled Continue lisinopril and Lasix (5) Hyperlipidemia: continue statin (6) Hypothyroidism: Continue levothyroxine (7) Tachy-shruthi syndrome: s/p PPM device interrogation 10/07 revealed 55 day afib burden Dispo: PCU PCP: Dr. Riley Full Code Admission and Anticipated Discharge Date Admission Date: October 14, 2020 Subjective Patient seen in follow-up of recurrent A. fib Currently sitting up in bed, eating lunch in no acute distress No acute events overnight either started on increased dose of sotalol, cardiology following closely Denies any chest pain, palpitations, shortness of breath, dizziness Review of Systems Review of Systems: All systems reviewed & are unremarkable except as noted in HPI & below Constitutional: no fever and no chills Respiratory: no cough and no dyspnea Cardiovascular: no chest pain and no palpitations Gastrointestinal: no abdominal pain, no nausea and no vomiting Physical Exam Physical Exam: Constitutional: WD/WN, morbidly obese, female, NAD, sitting up in bed, pleasant, conversing easily Head: Normocephalic, Atraumatic Eyes: PERRL, conjunctivae normal, anicteric sclerae ENMT: external ear and nose normal, oropharynx normal Neck: normal visual inspection Respiratory: normal respiratory effort, lungs clear to auscultation, no wheeze, rales, rhonchi. Normal insp/exp effort, no accessory muscle use Cardiovascular: irregular, no murmur, bilateral trace pretibial edema, bilateral venous stasis changes Vessels: no JVD or carotid bruit Chest: normal inspection of chest Abdomen: normal bowel sounds, soft, nontender Musculoskeletal: extremities motor strength 5/5 Skin: no rashes, warm and dry normal turgor Neurologic: PERRL, EOMI,no face palsy, no dysarthria, moves all extremities Psychiatric: A+Ox3, euthymic affect Results & Data Results & Data ([facility]) Vital Signs (Past 12 Hours) Vital Signs Temp Pulse Pulse Resp BP BP Pulse Ox 10/15/20 08:07 36.4 C L 64 21 103/64 97 10/15/20 03:28 36.6 C 75 18 96/51 L 94 10/15/20 00:00 77 10/14/20 23:35 36.6 C 73 16 100/63 94 Laboratory Results 10/15/20 10/15/20 10/15/20 Range/Units 11:11 07:32 07:32 PT (9.0-12.0) Seconds INR (0.9-1.1) Sodium 137 (136-145) mmol/L Potassium 3.7 (3.5-5.1) mmol/L Chloride 103 (98-107) mmol/L Carbon Dioxide 30 (21-32) mmol/L Anion Gap 4.0 (3-11) BUN 24 H (7-18) mg/dl Creatinine 0.62 (0.6-1.2) mg/dl Est Cr Clr Drug Dosing 130.2 ml/min Est GFR ( Amer) 105.1 ml/min Est GFR (Non-Af Amer) 90.7 ml/min BUN/Creatinine Ratio 38.4 H (10-20) Glucose 94 (70-99) mg/dl POC Glucose 115 H (70-99) mg/dl Estimat Average Glucose 134 mg/dl Hemoglobin A1c 6.3 H (4.5-5.6) % Calcium 9.0 (8.5-10.1) mg/dl Magnesium 2.2 (1.8-2.4) mg/dl 10/15/20 10/15/20 10/14/20 Range/Units 07:32 07:11 20:45 PT 27.4 H (9.0-12.0) Seconds INR 2.9 H (0.9-1.1) Sodium (136-145) mmol/L Potassium (3.5-5.1) mmol/L Chloride (98-107) mmol/L Carbon Dioxide (21-32) mmol/L Anion Gap (3-11) BUN (7-18) mg/dl Creatinine (0.6-1.2) mg/dl Est Cr Clr Drug Dosing ml/min Est GFR ( Amer) ml/min Est GFR (Non-Af Amer) ml/min BUN/Creatinine Ratio (10-20) Glucose (70-99) mg/dl POC Glucose 98 104 H (70-99) mg/dl Estimat Average Glucose mg/dl Hemoglobin A1c (4.5-5.6) % Calcium (8.5-10.1) mg/dl Magnesium (1.8-2.4) mg/dl Medications Administered Current Inpatient Medications Acetaminophen (Acetaminophen 325 Mg Tab) 650 mg PO Q4H PRN PRN Reason: Pain or Fever Stop: 11/13/20 14:26 Al Hydrox/Mg Hydrox/Simethicone (Aluminum/Magnesium Susp 30 Ml Udc) 15 ml PO Q4H PRN PRN Reason: Dyspepsia Stop: 11/13/20 14:26 Atorvastatin Calcium (Atorvastatin 10 Mg Tab) 10 mg PO QPM [facility] Stop: 11/13/20 20:59 Last Admin: 10/14/20 21:49 Dose: 10 mg Documented by: Dextrose (Dextrose 50% 50 Ml Syringe) 25 - 50 ml IV UD PRN; Protocol PRN Reason: Hypoglycemia Protocol Stop: 11/13/20 14:26 Furosemide (Furosemide 40 Mg Tab) 40 mg PO QAM [facility] Stop: 11/14/20 08:59 Last Admin: 10/15/20 08:57 Dose: 40 mg Documented by: Furosemide (Furosemide 20 Mg Tab) 20 mg PO DAILY@1400 [facility] Stop: 11/13/20 14:26 Last Admin: 10/14/20 16:05 Dose: Not Given Documented by: Glucagon (Glucagon For Inj 1 Mg Vial) 1 mg SQ UD PRN; Protocol PRN Reason: Hypoglycemia Protocol Stop: 11/13/20 14:26 Glucose (Glucose 10 Tabs/Tube) 4 - 8 tabs PO UD PRN; Protocol PRN Reason: Hypoglycemia Protocol Stop: 11/13/20 14:26 Glucose (Glucose 40% Gel 15 Gm Tube) 15 - 30 gm PO UD PRN; Protocol PRN Reason: Hypoglycemia Protocol Stop: 11/13/20 14:26 Levothyroxine Sodium (Levothyroxine Sodium 150 Mcg Tablet) 150 mcg PO DAILY@0630 [facility] Stop: 11/14/20 06:29 Last Admin: 10/15/20 06:02 Dose: 150 mcg Documented by: Lisinopril (Lisinopril 5 Mg Tab) 5 mg PO QAM [facility] Stop: 11/14/20 08:59 Last Admin: 10/15/20 08:57 Dose: 5 mg Documented by: Magnesium Hydroxide (Magnesium Hydroxide Susp 30 Ml Udc) 30 ml PO Q12H PRN PRN Reason: Constipation Stop: 11/13/20 14:26 Miscellaneous (Carbohydrates For Hypoglycemia ) 15 - 30 gm PO UD PRN PRN Reason: Hypoglycemia Protocol Stop: 11/13/20 14:26 Multivitamins (Multivitamin Tab) 1 tab PO QAM [facility] Stop: 11/14/20 08:59 Last Admin: 10/15/20 08:57 Dose: 1 tab Documented by: Polyethylene Glycol (Polyethylene (Miralax) 17 Gm Pack) 17 gm PO DAILY PRN PRN Reason: Constipation Stop: 11/13/20 14:26 Sotalol HCl (Sotalol Hcl 80 Mg Tab) 120 mg PO BID [facility] Stop: 11/13/20 20:59 Last Admin: 10/15/20 08:56 Dose: 120 mg Documented by: Warfarin Sodium (Warfarin Sod 2.5 Mg Tab) 2.5 mg PO MoFr@1600 [facility] Stop: 11/15/20 15:59 Warfarin Sodium (Warfarin Sod 5 Mg Tab) 5 mg PO [id number]@1600 [facility] Stop: 11/14/20 15:59 (1) Atrial fibrillation Atrial fibrillation type: unspecified Qualified Code(s): I48.91 - Unspecified atrial fibrillation
[2020-10-15 08:30] LABS: INR 2.9 (0.9-1.1); Prothrombin Time 27.4 Seconds (9.0-12.0)
[2020-10-15 08:52] LABS: BUN Creatinine Ratio 38.4 (10-20); Creatinine Clr Calc Pharmacy 130.2 ml/min; Est GFR (African American) 105.1 ml/min; Est GFR (Non-African American) 90.7 ml/min; Magnesium 2.2 mg/dl (1.8-2.4); Potassium 3.7 mmol/L (3.5-5.1)
[2020-10-15] MEDS: SOTALOL HCL 80 MG TAB PO SCH ×2 (08:56→20:18)
[2020-10-15] MEDS: FUROSEMIDE 40 MG TAB PO SCH (08:57)
[2020-10-15] MEDS: lisinopril 5 MG TAB PO SCH (08:57)
[2020-10-15] MEDS: MULTIVITAMIN TAB PO SCH (08:57)
[2020-10-15 09:08] LABS: Estimated Average Glucose 134 mg/dl; Hemoglobin A1C 6.3 % (4.5-5.6)
--- NOTE | 2020-10-15 11:04 | Cardiology Progress Note ---
Date of Service October 15, 2020 Assessment & Plan (1) Atrial fibrillation: (2) Encounter for monitoring anti-arrhythmic therapy: The patient is tolerating the increased dosage of sotalol. Plan is for the patient to be n.p.o. after midnight and she will have a elective cardioversion tomorrow morning. Admission and Anticipated Discharge Date Admission Date: October 14, 2020 Subjective The patient had an uneventful night. Tolerating the increased dosage of sotalol. Review of Systems Review of Systems: All systems reviewed & are unremarkable except as noted in Subjective Physical Exam Physical Exam: General: no acute distress and stated age Head: normocephalic, no masses, lesions, tenderness or abnormalities Eyes: conjunctiva are pink and non-injected, sclera clear Neck: supple, no adenopathy, no bruits, normal jugular venous pulse, no hepatojugular reflux Chest: normal shape and normal respiratory effort Lungs: clear to auscultation and percussion Cardiac Exam: - regular rate & rhythm, no murmurs gallops or rubs - normal S1, normal S2 Pulses: 2(+) throughout Abdomen: abdomen soft, non-tender, no abnormal masses and no hepatosplenomegaly Musculoskeletal: no gait disturbance, no joint inflammation, no deforming arthritis Extremities: no edema and no cyanosis Neuro: grossly normal exam Results & Data ([facility]) Vital Signs (Past 12 Hours) Vital Signs Temp Pulse Pulse Resp BP BP Pulse Ox 10/15/20 08:07 36.4 C L 64 21 103/64 97 10/15/20 03:28 36.6 C 75 18 96/51 L 94 10/15/20 00:00 77 10/14/20 23:35 36.6 C 73 16 100/63 94 Laboratory Results Laboratory Results - last 24 hr 10/14/20 10/14/20 10/14/20 10:00 10:26 20:45 PT 29.5 H INR 3.2 H Sodium Potassium Chloride Carbon Dioxide Anion Gap BUN Creatinine Est Cr Clr Drug Dosing Est GFR ( Amer) Est GFR (Non-Af Amer) BUN/Creatinine Ratio Glucose POC Glucose 104 H Estimat Average Glucose Hemoglobin A1c Calcium Magnesium SARS-CoV-2 (PCR) NEGATIVE 10/15/20 10/15/20 10/15/20 07:11 07:32 07:32 PT 27.4 H INR 2.9 H Sodium 137 Potassium 3.7 Chloride 103 Carbon Dioxide 30 Anion Gap 4.0 BUN 24 H Creatinine 0.62 Est Cr Clr Drug Dosing 130.2 Est GFR ( Amer) 105.1 Est GFR (Non-Af Amer) 90.7 BUN/Creatinine Ratio 38.4 H Glucose 94 POC Glucose 98 Estimat Average Glucose Hemoglobin A1c Calcium 9.0 Magnesium 2.2 SARS-CoV-2 (PCR) 10/15/20 07:32 PT INR Sodium Potassium Chloride Carbon Dioxide Anion Gap BUN Creatinine Est Cr Clr Drug Dosing Est GFR ( Amer) Est GFR (Non-Af Amer) BUN/Creatinine Ratio Glucose POC Glucose Estimat Average Glucose 134 Hemoglobin A1c 6.3 H Calcium Magnesium SARS-CoV-2 (PCR) Diagnostic Findings Reviewing the telemetry over the past 24 hours the patient is mostly a paced rhythm with the underlying being atrial fibrillation. Medications Administered Current Inpatient Medications Acetaminophen (Acetaminophen 325 Mg Tab) 650 mg PO Q4H PRN PRN Reason: Pain or Fever Stop: 11/13/20 14:26 Al Hydrox/Mg Hydrox/Simethicone (Aluminum/Magnesium Susp 30 Ml Udc) 15 ml PO Q4H PRN PRN Reason: Dyspepsia Stop: 11/13/20 14:26 Atorvastatin Calcium (Atorvastatin 10 Mg Tab) 10 mg PO QPM [facility] Stop: 11/13/20 20:59 Last Admin: 10/14/20 21:49 Dose: 10 mg Documented by: Dextrose (Dextrose 50% 50 Ml Syringe) 25 - 50 ml IV UD PRN; Protocol PRN Reason: Hypoglycemia Protocol Stop: 11/13/20 14:26 Furosemide (Furosemide 40 Mg Tab) 40 mg PO QAM [facility] Stop: 11/14/20 08:59 Last Admin: 10/15/20 08:57 Dose: 40 mg Documented by: Furosemide (Furosemide 20 Mg Tab) 20 mg PO DAILY@1400 [facility] Stop: 11/13/20 14:26 Last Admin: 10/14/20 16:05 Dose: Not Given Documented by: Glucagon (Glucagon For Inj 1 Mg Vial) 1 mg SQ UD PRN; Protocol PRN Reason: Hypoglycemia Protocol Stop: 11/13/20 14:26 Glucose (Glucose 10 Tabs/Tube) 4 - 8 tabs PO UD PRN; Protocol PRN Reason: Hypoglycemia Protocol Stop: 11/13/20 14:26 Glucose (Glucose 40% Gel 15 Gm Tube) 15 - 30 gm PO UD PRN; Protocol PRN Reason: Hypoglycemia Protocol Stop: 11/13/20 14:26 Levothyroxine Sodium (Levothyroxine Sodium 150 Mcg Tablet) 150 mcg PO DAILY@0630 [facility] Stop: 11/14/20 06:29 Last Admin: 10/15/20 06:02 Dose: 150 mcg Documented by: Lisinopril (Lisinopril 5 Mg Tab) 5 mg PO QAM [facility] Stop: 11/14/20 08:59 Last Admin: 10/15/20 08:57 Dose: 5 mg Documented by: Magnesium Hydroxide (Magnesium Hydroxide Susp 30 Ml Udc) 30 ml PO Q12H PRN PRN Reason: Constipation Stop: 11/13/20 14:26 Miscellaneous (Carbohydrates For Hypoglycemia ) 15 - 30 gm PO UD PRN PRN Reason: Hypoglycemia Protocol Stop: 11/13/20 14:26 Multivitamins (Multivitamin Tab) [facility] [place] Stop: 11/14/20 08:59 Last Admin: 10/15/20 08:57 Dose: 1 tab Documented by: Polyethylene Glycol (Polyethylene (Miralax) 17 Gm Pack) 17 gm PO DAILY PRN PRN Reason: Constipation Stop: 11/13/20 14:26 Sotalol HCl (Sotalol Hcl 80 Mg Tab) 120 mg PO BID [facility] Stop: 11/13/20 20:59 Last Admin: 10/15/20 08:56 Dose: 120 mg Documented by: Warfarin Sodium (Warfarin Sod 2.5 Mg Tab) 2.5 mg PO MoFr@1600 [facility] Stop: 11/15/20 15:59 Warfarin Sodium (Warfarin Sod 5 Mg Tab) 5 mg PO SuTuWeThSa@1600 [facility] Stop: 11/14/20 15:59 (1) Atrial fibrillation Atrial fibrillation type: unspecified Qualified Code(s): I48.91 - Unspecified atrial fibrillation
[2020-10-15] MEDS ORDERED: POTASSIUM CHLORIDE CRTAB 20 MEQ TABCR PO STA (12:18)
[2020-10-15] MEDS: FUROSEMIDE 20 MG TAB PO SCH (13:03)
[2020-10-15] MEDS ORDERED: WARFARIN SOD 5 MG TAB PO SCH ×4 (16:00)
[2020-10-15] MEDS: ATORVASTATIN 10 MG TAB PO SCH (20:18)
[2020-10-16] MEDS: LEVOTHYROXINE SODIUM 150 MCG TABLET PO SCH (05:51)
--- NOTE | 2020-10-16 05:58 | Electrocardiogram Report ---
Test Reason : Blood Pressure : / mmHG Vent. Rate : 069 BPM Atrial Rate : 068 BPM P-R Int : 000 ms QRS Dur : 150 ms QT Int : 476 ms P-R-T Axes : 000 -73 098 degrees QTc Int : 510 ms Ventricular-paced rhythm Abnormal ECG When compared with ECG of 01-OCT-2019 07:58, Electronic ventricular pacemaker has replaced Electronic atrial pacemaker Confirmed by Saud Deng ([id number]) on 10/16/2020 5:58:30 AM Referred By: Confirmed By:Saud Deng
--- NOTE | 2020-10-16 06:52 | Electrocardiogram Report ---
Test Reason : Blood Pressure : / mmHG Vent. Rate : 065 BPM Atrial Rate : 065 BPM P-R Int : 000 ms QRS Dur : 106 ms QT Int : 490 ms P-R-T Axes : 000 -10 -77 degrees QTc Int : 509 ms Ventricular-paced rhythm Atrial fibrillation T wave abnormality, consider anterior ischemia Abnormal ECG When compared with ECG of 14-OCT-2020 09:56, Vent. rate has decreased BY 4 BPM Confirmed by Saud Deng ([id number]) on 10/16/2020 6:51:58 AM Referred By: Louie Tavera Confirmed By:Saud Deng
[2020-10-16] MEDS ORDERED: PROPOFOL IV EMULSION 10 MG/ML 20 ML VIAL IV ONE ×2 (07:20→07:22)
[2020-10-16 07:21] LABS: INR 2.9 (0.9-1.1); Prothrombin Time 26.7 Seconds (9.0-12.0)
--- NOTE | 2020-10-16 07:33 | Anesthesiology Consultation ---
Date of Service October 16, 2020 Assessment & Plan (1) Encounter for pre-operative examination: Chart Review Chart Review: Acceptable Risk for Surgery, Patient NOT seen in Pre Admission Testing and entry level accountant initiated Consults Requested none ASA ASA3 Proposed Anesthesia Anesthesia Type: MAC Risk / Benefits Reviewed With: PT / POA / Parent / Guardian, Accepts Plan and Informed Consent Obtained History Surgery Operation Date: 10/16/20 07:45 Proposed Procedures p Cardioversion Billet Worker w/Anesthesia - Shay Montenegro, Height/Weight Height: 5 ft 7 in Weight: 154.4 kg Allergies Allergy/AdvReac Type Severity Reaction Status Date / Time No Known Allergies Allergy Verified 10/14/20 10:22 Medications Home Medications Medication Instructions Recorded Confirmed Last Taken atorvastatin 10 mg PO QPM 08/26/19 10/14/20 Unknown furosemide 40 mg PO QAM 08/26/19 10/14/20 10/14/20 levothyroxine 150 mcg PO DAILY@0630 08/26/19 10/14/20 10/14/20 lisinopril 5 mg PO QAM 08/26/19 10/14/20 Unknown metformin 500 mg PO QAM 08/26/19 10/14/20 Unknown multivitamin 1 tab PO QAM 08/26/19 10/14/20 Unknown sotalol 80 mg PO BID 08/26/19 10/14/20 Unknown warfarin [Jantoven] 5 mg PO SUTUWETHSA 08/26/19 10/14/20 09/30/19 5 mg furosemide 20 mg PO DAILY@1400 10/14/20 10/14/20 Unknown warfarin 2.5 mg PO MOFR 10/14/20 10/14/20 Unknown Active Medications Generic Name Dose Route Start Last Admin Trade Name Freq PRN Reason Stop Dose Admin Atorvastatin Calcium 10 mg 10/14/20 21:00 10/15/20 20:18 Atorvastatin 10 Mg Tab PO 11/13/20 20:59 10 mg QPM [facility] Administration Furosemide 40 mg 10/15/20 09:00 10/15/20 08:57 Furosemide 40 Mg Tab PO 11/14/20 08:59 40 mg QAM [facility] Administration Furosemide 20 mg 10/14/20 14:27 10/15/20 13:03 Furosemide 20 Mg Tab PO 11/13/20 14:26 20 mg DAILY@1400 [facility] Administration Levothyroxine Sodium 150 mcg 10/15/20 06:30 10/16/20 05:51 Levothyroxine Sodium 150 Mcg Tablet PO 11/14/20 06:29 150 mcg DAILY@0630 [facility] Administration Lisinopril 5 mg 10/15/20 09:00 10/15/20 08:57 Lisinopril 5 Mg Tab PO 11/14/20 08:59 5 mg QAM [facility] Administration Multivitamins 1 tab 10/15/20 09:00 10/15/20 08:57 Multivitamin Tab PO 11/14/20 08:59 1 tab QAM [facility] Administration Sotalol HCl 120 mg 10/14/20 21:00 10/15/20 20:18 Sotalol Hcl 80 Mg Tab PO 11/13/20 20:59 120 mg BID [facility] Administration Warfarin Sodium 5 mg 10/15/20 16:00 10/15/20 15:12 Warfarin Sod 5 Mg Tab PO 11/14/20 15:59 5 mg [id number]@1600 [facility] Administration NPO Date Last Intake of Fluids: 10/16/20 Time Last Intake of Fluids: 00:00 Date Last Intake of Solids: 10/16/20 Time Last Intake of Solids: 00:00 Past Medical History Medical History (Updated 10/16/20 @ 07:32 by Koby Aguila MD) Atrial fibrillation Congestive heart failure Diabetes mellitus, type 2 Fatty liver History of cardioversion 2016 [facility] Hx of cancer of uterus SX AND RADIATION Hx of tachycardia-bradycardia syndrome Hyperlipidemia Hypertension Hypothyroidism Mild valvular heart disease Pacemaker INSERTED 2016 FOR TACHY/SHRUTHI SYNDROME ([employer] DEVICE) Tachy-shruthi syndrome Uterine cancer Past Family History Family History Mother Family history of diabetes mellitus Family history of esophageal cancer Past Surgical History Surgical History H/O heart surgery ATRIAL SEPTAL DEFECT REPAIRED 1974 [facility] H/O total hysterectomy [place] BSO with omentecomy for stage 1 endometrial ca History of appendectomy History of cardiac cath 1974 (NO STENTS) History of cardiac radiofrequency ablation 2011 [facility] History of cholecystectomy History of colonoscopy History of tonsillectomy Social History Smoking Status: Former smoker tobacco type: cigarettes Hx Alcohol Use: No Hx Substance Use: No substance use type: does not use Physical Exam Vital Signs Last Vital Signs Temp 36.4 C L 10/16/20 07:10 Pulse 67 10/16/20 07:19 Resp 16 10/16/20 07:10 BP 163/77 H 10/16/20 07:10 Pulse Ox 96 10/16/20 07:10 Testing Laboratory Results 10/14/20 10:00 PT 26.7 Seconds (9.0-12.0) H 10/16/20 06:47 INR 2.9 (0.9-1.1) H 10/16/20 06:47 APTT 44.5 Seconds (21.0-31.0) H 10/14/20 10:00 Hemoglobin A1c 6.3 % (4.5-5.6) H 10/15/20 07:32 10/15/20 20:31 POC Glucose 88
[2020-10-16 07:45] LABS: BUN Creatinine Ratio 32.4 (10-20); Calcium 8.8 mg/dl (8.5-10.1); Creatinine Clr Calc Pharmacy 143.6 ml/min; Est GFR (African American) 108.7 ml/min; Est GFR (Non-African American) 93.8 ml/min; Magnesium 2.2 mg/dl (1.8-2.4); Potassium 3.9 mmol/L (3.5-5.1)
--- NOTE | 2020-10-16 08:40 | Anesthesiology Progress Note ---
Date of Service October 16, 2020 Anesthesia Post Procedure Vital Signs Vital Signs: Temp Pulse Pulse Resp BP BP Pulse Ox 10/16/20 08:30 61 16 132/48 L 94 10/16/20 08:15 60 16 129/50 L 93 10/16/20 08:00 77 16 131/53 L 99 10/16/20 07:58 62 16 144/55 H 99 10/16/20 07:19 67 10/16/20 07:10 36.4 C L 61 16 163/77 H 96 10/16/20 04:12 36.4 C L 69 20 100/58 L 92 10/16/20 00:19 36.3 C L 62 20 96/46 L 93 10/15/20 23:00 61 10/15/20 19:27 36.4 C L 60 22 103/65 97 10/15/20 16:15 36.6 C 61 22 106/64 96 10/15/20 12:12 36.4 C L 70 20 112/73 94 Transfer of Care Handoff Completed per policy Notes Mental Status: alert / awake / arousable and participated in evaluation Patient Amnestic to Procedure: Yes Nausea / Vomiting: adequately controlled Pain: adequately controlled Airway Patency, RR, SpO2: stable & adequate BP & HR: stable & adequate Hydration State: stable & adequate Anesthetic Complications: no major complications apparent and Pt Satisfied with anesthetic care
[2020-10-16] MEDS: FUROSEMIDE 40 MG TAB PO SCH (09:37)
[2020-10-16] MEDS: SOTALOL HCL 80 MG TAB PO SCH (09:37)
[2020-10-16] MEDS: lisinopril 5 MG TAB PO SCH (09:37)
[2020-10-16] MEDS: MULTIVITAMIN TAB PO SCH (09:37)
--- NOTE | 2020-10-16 09:50 | Hospitalist Progress Note ---
Date of Service October 16, 2020 Assessment & Plan (1) Atrial fibrillation: This is a 70-year-old female who has significant past medical history of T2DM, HTN, HLD, chronic HFpEF, TBS status post pacemaker, PAF on sotalol and anticoagulated on warfarin, FERNY, hypothyroidism, history of uterine cancer who presents to ED at the referral cardiology for increased sotalol dosing. [id number] score of 5 (age, female, CHF, hypertension, diabetes) admit to PCU for increased sotalol loading per cardiology consult cardiology -Dr. Montenegro aware Had previous DCCV and sotalol loading on 12/01, repeat DCCV on 10/01/2019, recurrent PAF on 07/2020 Mostly asymptomatic but does complain of [place] and fatigue Patient with history of TBS status post pacemaker in 2016, interrogation revealed A. fib with approximately 55-day burden, she did self convert for about 3 weeks but return to A. fib. Continue warfarin, INR therapeutic qtc 510ms today, avoid qtc prolonging agents Last echo 10/08/2019: EF 55 to 59%, grade 1 diastolic dysfunction, left atrium mildly enlarged, sigmoid septum, septal motion abnormal consistent with IVCD Patient was started on increased dose of sotalol, tolerating well, cardiology closely following, today (10/16) s/p cardioversion Patient tolerated procedure well, plan to discharge home on increased dose of sotalol, 120 mg twice daily Outpatient follow-up with cardiology (2) Chronic heart failure with preserved ejection fraction (HFpEF): Euvolemic, compensated Daily weight, strict I&O Heart healthy low-sodium diet Continue Lasix and lisinopril (3) DM (diabetes mellitus): Controlled, last A1c 6.3 on 10/08/2019 Current A1c 6.3% Hold Metformin, resume on DC Diabetic diet Monitor BSG, currently in 90s Will not add insulin coverage at this point, if patient consistently hyperg lycemic we will then add (4) Hypertension: Blood pressure controlled Continue lisinopril and Lasix (5) Hyperlipidemia: continue statin (6) Hypothyroidism: Continue levothyroxine (7) Tachy-shruthi syndrome: s/p PPM device interrogation 10/07 revealed 55 day afib burden Dispo: PCU PCP: Dr. Riley Full Code Admission and Anticipated Discharge Date Admission Date: October 14, 2020 Subjective Patient seen in follow-up of recurrent A. fib Currently sitting up in bed, in no acute distress started on increased dose of sotalol, cardiology following closely Patient underwent cardioversion this morning with cardiology, plan to discharge home later today Denies any chest pain, palpitations, shortness of breath, dizziness Review of Systems Review of Systems: All systems reviewed & are unremarkable except as noted in HPI & below Constitutional: no fever and no chills Respiratory: no cough and no dyspnea Cardiovascular: no chest pain and no palpitations Gastrointestinal: no abdominal pain, no nausea and no vomiting Physical Exam Physical Exam: Constitutional: WD/WN, morbidly obese, female, NAD, sitting up in bed, pleasant, conversing easily Head: Normocephalic, Atraumatic Eyes: PERRL, conjunctivae normal, anicteric sclerae ENMT: external ear and nose normal, oropharynx normal Neck: normal visual inspection Respiratory: normal respiratory effort, lungs clear to auscultation, no wheeze, rales, rhonchi. Normal insp/exp effort, no accessory muscle use Cardiovascular: RRR, no murmur, bilateral trace pretibial edema, bilateral venous stasis changes Vessels: no JVD or carotid bruit Chest: normal inspection of chest Abdomen: normal bowel sounds, soft, nontender Musculoskeletal: extremities motor strength 5/5 Skin: no rashes, warm and dry normal turgor Neurologic: PERRL, EOMI,no face palsy, no dysarthria, moves all extremities Psychiatric: A+Ox3, euthymic affect Results & Data Results & Data ([facility]) Vital Signs (Past 12 Hours) Vital Signs Temp Pulse Pulse Resp BP BP Pulse Ox 10/16/20 09:30 63 10/16/20 09:19 62 18 127/72 96 10/16/20 09:03 72 18 127/71 96 10/16/20 08:48 66 18 128/69 95 10/16/20 08:30 61 16 132/48 L 94 10/16/20 08:15 60 16 129/50 L 93 10/16/20 08:00 77 16 131/53 L 99 10/16/20 07:58 62 16 144/55 H 99 10/16/20 07:19 67 10/16/20 07:10 36.4 C L 61 16 163/77 H 96 10/16/20 04:12 36.4 C L 69 20 100/58 L 92 10/16/20 00:19 36.3 C L 62 20 96/46 L 93 10/15/20 23:00 61 Laboratory Results 10/16/20 10/16/20 10/16/20 Range/Units 09:36 06:47 06:47 PT 26.7 H (9.0-12.0) Seconds INR 2.9 H (0.9-1.1) Sodium 138 (136-145) mmol/L Potassium 3.9 (3.5-5.1) mmol/L Chloride 106 (98-107) mmol/L Carbon Dioxide 28 (21-32) mmol/L Anion Gap 4.0 (3-11) BUN 18 (7-18) mg/dl Creatinine 0.56 L (0.6-1.2) mg/dl Est Cr Clr Drug Dosing 143.6 ml/min Est GFR ( Amer) 108.7 ml/min Est GFR (Non-Af Amer) 93.8 ml/min BUN/Creatinine Ratio 32.4 H (10-20) Glucose 93 (70-99) mg/dl POC Glucose 83 (70-99) mg/dl Calcium 8.8 (8.5-10.1) mg/dl Magnesium 2.2 (1.8-2.4) mg/dl 10/15/20 10/15/20 10/15/20 Range/Units 20:31 16:30 11:11 PT (9.0-12.0) Seconds INR (0.9-1.1) Sodium (136-145) mmol/L Potassium (3.5-5.1) mmol/L Chloride (98-107) mmol/L Carbon Dioxide (21-32) mmol/L Anion Gap (3-11) BUN (7-18) mg/dl Creatinine (0.6-1.2) mg/dl Est Cr Clr Drug Dosing ml/min Est GFR ( Amer) ml/min Est GFR (Non-Af Amer) ml/min BUN/Creatinine Ratio (10-20) Glucose (70-99) mg/dl POC Glucose 88 95 115 H (70-99) mg/dl Calcium (8.5-10.1) mg/dl Magnesium (1.8-2.4) mg/dl Medications Administered Current Inpatient Medications Acetaminophen (Acetaminophen 325 Mg Tab) 650 mg PO Q4H PRN PRN Reason: Pain or Fever Stop: 11/13/20 14:26 Al Hydrox/Mg Hydrox/Simethicone (Aluminum/Magnesium Susp 30 Ml Udc) 15 ml PO Q4H PRN PRN Reason: Dyspepsia Stop: 11/13/20 14:26 Atorvastatin Calcium (Atorvastatin 10 Mg Tab) 10 mg PO QPM [facility] Stop: 11/13/20 20:59 Last Admin: 10/15/20 20:18 Dose: 10 mg Documented by: Dextrose (Dextrose 50% 50 Ml Syringe) 25 - 50 ml IV UD PRN; Protocol PRN Reason: Hypoglycemia Protocol Stop: 11/13/20 14:26 Furosemide (Furosemide 40 Mg Tab) 40 mg PO QAM [facility] Stop: 11/14/20 08:59 Last Admin: 10/16/20 09:37 Dose: 40 mg Documented by: Furosemide (Furosemide 20 Mg Tab) 20 mg PO DAILY@1400 [facility] Stop: 11/13/20 14:26 Last Admin: 10/15/20 13:03 Dose: 20 mg Documented by: Glucagon (Glucagon For Inj 1 Mg Vial) 1 mg SQ UD PRN; Protocol PRN Reason: Hypoglycemia Protocol Stop: 11/13/20 14:26 Glucose (Glucose 10 Tabs/Tube) 4 - 8 tabs PO UD PRN; Protocol PRN Reason: Hypoglycemia Protocol Stop: 11/13/20 14:26 Glucose (Glucose 40% Gel 15 Gm Tube) 15 - 30 gm PO UD PRN; Protocol PRN Reason: Hypoglycemia Protocol Stop: 11/13/20 14:26 Levothyroxine Sodium (Levothyroxine Sodium 150 Mcg Tablet) 150 mcg PO DAILY@0630 [facility] Stop: 11/14/20 06:29 Last Admin: 10/16/20 05:51 Dose: 150 mcg Documented by: Lisinopril (Lisinopril 5 Mg Tab) 5 mg PO QAM [facility] Stop: 11/14/20 08:59 Last Admin: 10/16/20 09:37 Dose: 5 mg Documented by: Magnesium Hydroxide (Magnesium Hydroxide Susp 30 Ml Udc) 30 ml PO Q12H PRN PRN Reason: Constipation Stop: 11/13/20 14:26 Miscellaneous (Carbohydrates For Hypoglycemia ) 15 - 30 gm PO UD PRN PRN Reason: Hypoglycemia Protocol Stop: 11/13/20 14:26 Multivitamins (Multivitamin Tab) 1 tab PO QAM [facility] Stop: 11/14/20 08:59 Last Admin: 10/16/20 09:37 Dose: 1 tab Documented by: Polyethylene Glycol (Polyethylene (Miralax) 17 Gm Pack) 17 gm PO DAILY PRN PRN Reason: Constipation Stop: 11/13/20 14:26 Sotalol HCl (Sotalol Hcl 80 Mg Tab) 120 mg PO BID [facility] Stop: 11/13/20 20:59 Last Admin: 10/16/20 09:37 Dose: 120 mg Documented by: Warfarin Sodium (Warfarin Sod 2.5 Mg Tab) 2.5 mg PO MoFr@1600 [facility] Stop: 11/15/20 15:59 Warfarin Sodium (Warfarin Sod 5 Mg Tab) 5 mg PO SuTuWeThSa@1600 [facility] Stop: 11/14/20 15:59 Last Admin: 10/15/20 15:12 Dose: 5 mg Documented by: (1) Atrial fibrillation Atrial fibrillation type: unspecified Qualified Code(s): I48.91 - Unspecified atrial fibrillation
--- NOTE | 2020-10-16 10:45 | Cardioversion ---
Date of Service October 16, 2020 Electrical Cardioversion Rpt Electrical Cardioversion Report After informed consent was obtained the patient received sedation by anesthesia. She then was given 300 J of synchronized energy converting her back to a normal sinus rhythm. Pacemaker interrogation adjustments were performed by the [employer] reimbursement representative. She was then returned to her room in stable condition.
--- NOTE | 2020-10-16 10:47 | Cardiology Progress Note ---
Date of Service October 16, 2020 Assessment & Plan (1) Atrial fibrillation: (2) Encounter for monitoring anti-arrhythmic therapy: The patient was successfully cardioverted this morning. I believe she may be discharged later today on her current medications including sotalol 120 mg twice daily. Admission and Anticipated Discharge Date Admission Date: October 14, 2020 Subjective Post cardioversion patient is doing well and has no complaints. She is alert and oriented. Review of Systems Review of Systems: All systems reviewed & are unremarkable except as noted in Subjective Physical Exam Physical Exam: General: no acute distress and stated age Head: normocephalic, no masses, lesions, tenderness or abnormalities Eyes: conjunctiva are pink and non-injected, sclera clear Neck: supple, no adenopathy, no bruits, normal jugular venous pulse, no hepatojugular reflux Chest: normal shape and normal respiratory effort Lungs: clear to auscultation and percussion Cardiac Exam: - regular rate & rhythm, no murmurs gallops or rubs - normal S1, normal S2 Pulses: 2(+) throughout Abdomen: abdomen soft, non-tender, no abnormal masses and no hepatosplenomegaly Musculoskeletal: no gait disturbance, no joint inflammation, no deforming arthritis Extremities: no edema and no cyanosis Neuro: grossly normal exam Results & Data ([facility]) Vital Signs (Past 12 Hours) Vital Signs Temp Pulse Pulse Resp BP BP Pulse Ox 10/16/20 09:30 63 10/16/20 09:19 62 18 127/72 96 10/16/20 09:03 72 18 127/71 96 10/16/20 08:48 66 18 128/69 95 10/16/20 08:30 61 16 132/48 L 94 10/16/20 08:15 60 16 129/50 L 93 10/16/20 08:00 77 16 131/53 L 99 10/16/20 07:58 62 16 144/55 H 99 10/16/20 07:19 67 10/16/20 07:10 36.4 C L 61 16 163/77 H 96 10/16/20 04:12 36.4 C L 69 20 100/58 L 92 10/16/20 00:19 36.3 C L 62 20 96/46 L 93 10/15/20 23:00 61 Laboratory Results Laboratory Results - last 24 hr 10/15/20 10/15/20 10/15/20 11:11 16:30 20:31 PT INR Sodium Potassium Chloride Carbon Dioxide Anion Gap BUN Creatinine Est Cr Clr Drug Dosing Est GFR ( Amer) Est GFR (Non-Af Amer) BUN/Creatinine Ratio Glucose POC Glucose 115 H 95 88 Calcium Magnesium 10/16/20 10/16/20 10/16/20 06:47 06:47 09:36 PT 26.7 H INR 2.9 H Sodium 138 Potassium 3.9 Chloride 106 Carbon Dioxide 28 Anion Gap 4.0 BUN 18 Creatinine 0.56 L Est Cr Clr Drug Dosing 143.6 Est GFR ( Amer) 108.7 Est GFR (Non-Af Amer) 93.8 BUN/Creatinine Ratio 32.4 H Glucose 93 POC Glucose 83 Calcium 8.8 Magnesium 2.2 Medications Administered Current Inpatient Medications Acetaminophen (Acetaminophen 325 Mg Tab) 650 mg PO Q4H PRN PRN Reason: Pain or Fever Stop: 11/13/20 14:26 Al Hydrox/Mg Hydrox/Simethicone (Aluminum/Magnesium Susp 30 Ml Udc) 15 ml PO Q4H PRN PRN Reason: Dyspepsia Stop: 11/13/20 14:26 Atorvastatin Calcium (Atorvastatin 10 Mg Tab) 10 mg PO QPM [facility] Stop: 11/13/20 20:59 Last Admin: 10/15/20 20:18 Dose: 10 mg Documented by: Dextrose (Dextrose 50% 50 Ml Syringe) 25 - 50 ml IV UD PRN; Protocol PRN Reason: Hypoglycemia Protocol Stop: 11/13/20 14:26 Furosemide (Furosemide 40 Mg Tab) 40 mg PO QAM [facility] Stop: 11/14/20 08:59 Last Admin: 10/16/20 09:37 Dose: 40 mg Documented by: Furosemide (Furosemide 20 Mg Tab) 20 mg PO DAILY@1400 [facility] Stop: 11/13/20 14:26 Last Admin: 10/15/20 13:03 Dose: 20 mg Documented by: Glucagon (Glucagon For Inj 1 Mg Vial) 1 mg SQ UD PRN; Protocol PRN Reason: Hypoglycemia Protocol Stop: 11/13/20 14:26 Glucose (Glucose 10 Tabs/Tube) 4 - 8 tabs PO UD PRN; Protocol PRN Reason: Hypoglycemia Protocol Stop: 11/13/20 14:26 Glucose (Glucose 40% Gel 15 Gm Tube) 15 - 30 gm PO UD PRN; Protocol PRN Reason: Hypoglycemia Protocol Stop: 11/13/20 14:26 Levothyroxine Sodium (Levothyroxine Sodium 150 Mcg Tablet) 150 mcg PO DAILY@0630 [facility] Stop: 11/14/20 06:29 Last Admin: 10/16/20 05:51 Dose: 150 mcg Documented by: Lisinopril (Lisinopril 5 Mg Tab) 5 mg PO QAM [facility] Stop: 11/14/20 08:59 Last Admin: 10/16/20 09:37 Dose: 5 mg Documented by: Magnesium Hydroxide (Magnesium Hydroxide Susp 30 Ml Udc) 30 ml PO Q12H PRN PRN Reason: Constipation Stop: 11/13/20 14:26 Miscellaneous (Carbohydrates For Hypoglycemia ) 15 - 30 gm PO UD PRN PRN Reason: Hypoglycemia Protocol Stop: 11/13/20 14:26 Multivitamins (Multivitamin Tab) 1 tab PO [facility] Stop: 11/14/20 08:59 Last Admin: 10/16/20 09:37 Dose: 1 tab Documented by: Polyethylene Glycol (Polyethylene (Miralax) 17 Gm Pack) 17 gm PO DAILY PRN PRN Reason: Constipation Stop: 11/13/20 14:26 Sotalol HCl (Sotalol Hcl 80 Mg Tab) 120 mg PO BID [facility] Stop: 11/13/20 20:59 Last Admin: 10/16/20 09:37 Dose: 120 mg Documented by: Warfarin Sodium (Warfarin Sod 2.5 Mg Tab) 2.5 mg PO MoFr@1600 [facility] Stop: 11/15/20 15:59 Warfarin Sodium (Warfarin Sod 5 Mg Tab) 5 mg PO SuTuWeThSa@1600 [facility] Stop: 11/14/20 15:59 Last Admin: 10/15/20 15:12 Dose: 5 mg Documented by: (1) Atrial fibrillation Atrial fibrillation type: unspecified Qualified Code(s): I48.91 - Unspecified atrial fibrillation
--- NOTE | 2020-10-16 13:19 | Discharge Summary ---
Date of Service October 16, 2020 Admission HPI Per Admitting Provider This is a 70-year-old female who has significant past medical history of T2DM, HTN, HLD, chronic HFpEF, TBS status post pacemaker, PAF on sotalol and anticoagulated on warfarin, FERNY, hypothyroidism, history of uterine cancer who presents to ED at the referral cardiology for increased sotalol dosing. She was seen and evaluated in cardiology clinic in 10/07. Of significance patient does have history of external DCCV and sotalol loading on 12/01 with repeat DCCV on 10/01/2019 and recurrence of PAF on 07/2020. Patient had a device interrogation on 10/07 which showed atrial fibrillation and A. fib burden was about 55 days when she self converted for about 3 weeks and she is now back in A. fib. Patient has been compliant with all medications and INR has been stable for many months. She does have history of TBS which pacemaker was implanted on 09/13/2026. Due to A. fib burden it was recommended patient be admitted for 3 days of increased sotalol dosage and proceed with DCCV. She was supposed to be a direct admission but secondary to limited availability she presents via the ER. Currently she feels well and offers no acute complaints. She does admit to fatigue and [place] secondary to A. fib. She denies any recent illness, fever, chills, sweats, lightheadedness, dizziness, syncope, chest pain, short breath at rest, cough, hemoptysis, nausea, vomiting, abdominal pain, change in bowel or urinary habits. She does take Lasix secondary to chronic HFpEF and she denies any significant weight gain. She admits to losing a few pounds. She denies any increased lower extremity edema. This morning she took her Lasix and levothyroxine, but did not take morning sotalol. She has been compliant and has not missed any doses of Coumadin. CBC and CMP generally unremarkable, troponin WNL. Chest x-ray with cardiomegaly but no acute abnormality. Admission Exam Per Admitting Provider Constitutional: WD/WN, morbidly obese, female, vitals as above, NAD, sitting up in bed, pleasant, conversing easily Head: Normocephalic, Atraumatic Eyes: PERRL, conjunctivae normal, anicteric sclerae ENMT: external ear and nose normal, oropharynx normal Neck: trachea midline, no thyromegaly normal visual inspection Respiratory: normal respiratory effort, lungs clear to auscultation, no wheeze, rales, rhonchi. Normal insp/exp effort, no accessory muscle use Cardiovascular: Regular rate, irregular rhythm, no murmur, bilateral trace pretibial edema, bilateral venous stasis changes Vessels: no JVD or carotid bruit Chest: normal inspection of chest Abdomen: normal bowel sounds, soft, nontender, no hepatosplenomegaly Musculoskeletal: no cyanosis or clubbing, extremities motor strength 5/5 Skin: no rashes, warm and dry normal turgor Neurologic: PERRL, EOMI, accommodation nl, no face palsy, no dysarthria CN's II-XI intact bilaterally and moves all extremities Psychiatric: A+Ox3, euthymic affect Lymphatic: no cervical or axillary lymphadenopathy : deferred Principal Diagnosis Recurrent atrial fibrillation, status post cardioversion and sotalol dose increased Discharge Exam Constitutional: WD/WN, morbidly obese, female, NAD, sitting up in bed, pleasant, conversing easily Head: Normocephalic, Atraumatic Eyes: PERRL, conjunctivae normal, anicteric sclerae ENMT: external ear and nose normal, oropharynx normal Neck: normal visual inspection Respiratory: normal respiratory effort, lungs clear to auscultation, no wheeze, rales, rhonchi. Normal insp/exp effort, no accessory muscle use Cardiovascular: RRR, no murmur, bilateral trace pretibial edema, bilateral venous stasis changes Vessels: no JVD or carotid bruit Chest: normal inspection of chest Abdomen: normal bowel sounds, soft, nontender Musculoskeletal: extremities motor strength 5/5 Skin: no rashes, warm and dry normal turgor Neurologic: PERRL, EOMI,no face palsy, no dysarthria, moves all extremities Psychiatric: A+Ox3, euthymic affect Discharge Data Allergies Allergy/AdvReac Type Severity Reaction Status Date / Time No Known Allergies Allergy Verified 10/14/20 10:22 Consultations 10/14/20 10:21 ED Decision to Admit Stat 10/14/20 10:36 Consult Cardiology Routine 10/15/20 10:59 Consult Anesthesiology Routine Procedures Performed Operation Date: 10/16/20 07:45 Actual Procedures p Cardioversion - Shay G. Lan, DO Hospital Course (1) Atrial fibrillation: This is a 70-year-old female who has significant past medical history of T2DM, HTN, HLD, chronic HFpEF, TBS status post pacemaker, PAF on sotalol and anticoagulated on warfarin, FERNY, hypothyroidism, history of uterine cancer who presents to ED at the referral cardiology for increased sotalol dosing. [id number] score of 5 (age, female, CHF, hypertension, diabetes) admit to PCU for increased sotalol loading per cardiology consult cardiology -Dr. Montenegro aware Had previous DCCV and sotalol loading on 12/01, repeat DCCV on 10/01/2019, recurrent PAF on 07/2020 Mostly asymptomatic but does complain of [place] and fatigue Patient with history of TBS status post pacemaker in 2016, interrogation revealed A. fib with approximately 55-day burden, she did self convert for about 3 weeks but return to A. fib. Continue warfarin, INR therapeutic qtc 510ms today, avoid qtc prolonging agents Last echo 10/08/2019: EF 55 to 59%, grade 1 diastolic dysfunction, left atrium mildly enlarged, sigmoid septum, septal motion abnormal consistent with IVCD Patient was started on increased dose of sotalol, tolerating well, cardiology closely following, today (10/16) s/p cardioversion Patient tolerated procedure well, plan to discharge home on increased dose of sotalol, 120 mg twice daily Outpatient follow-up with cardiology (2) Chronic heart failure with preserved ejection fraction (HFpEF): Euvolemic, compensated Daily weight, strict I&O Heart healthy low-sodium diet Continue Lasix and lisinopril (3) DM (diabetes mellitus): Controlled, last A1c 6.3 on 10/08/2019 Current A1c 6.3% Hold Metformin, resume on DC Diabetic diet Monitor BSG, currently in 90s Will not add insulin coverage at this point, if patient consistently hyperglycemic we will then add (4) Hypertension: Blood pressure controlled Continue lisinopril and Lasix (5) Hyperlipidemia: continue statin (6) Hypothyroidism: Continue levothyroxine (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 Riley Full Code Total Time Total Time Spent Total Time Spent (In Minutes): 35 Total Time Includes: Examination of the Patient, Discharge Planning, Medication Reconciliation and Communication With Other Providers Discharge Plan Discharge Items Patient Disposition: Home - Self-Care Reason For Visit: PAF,REQUIRING SOTALOL INFUSION Discharge Diagnosis: Recurrent atrial fibrillation, status post cardioversion and sotalol dose increased Activity: Per Instructions section Non-emergency contact: Primary Care Provider and Electronic Organ Technician Call non-emergency contact if: you have any medication questions and your symptoms worsen Follow-up/Referrals: Nicoals Riley MD [Primary Care Provider] - (Date & Time 10/19/2020 5:40 PM Provider Nicolas Riley MD Department Family Medicine [facility] ) Diet: Carb Consistent or DM2 and Low Sodium (2gm) Addtl Attending Provider Instructions: Follow-up with your primary care doctor, the appointment was scheduled for you for October 19. 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 Take sotalol at increased dose, 120 mg twice a day. Pending Studies at Discharge: No Stand-Alone Forms: My [facility] [email or web address], Smoking Cessation Medications and DC Order Prescriptions: New sotalol 80 mg Tablet 120 mg PO BID 30 Days Qty: 90 RF: 0 Continued multivitamin Tablet 1 tab PO QAM RF: 0 furosemide 40 mg Tablet 40 mg PO QAM RF: 0 metformin 500 mg Tablet 500 mg PO QAM RF: 0 atorvastatin 10 mg Tablet 10 mg PO QPM RF: 0 warfarin [Jantoven] 5 mg Tablet 5 mg PO SUTUWETHSA RF: 0 levothyroxine 150 mcg Tablet 150 mcg PO DAILY@0630 RF: 0 lisinopril 5 mg Tablet 5 mg PO QAM RF: 0 furosemide 40 mg tablet 20 mg PO DAILY@1400 RF: 0 warfarin 5 mg Tablet 2.5 mg PO MOFR RF: 0 Discontinued sotalol 80 mg Tablet 80 mg PO BID RF: 0 Discharge Orders: Discharge Order (Routine); Ordered 10/16/20 Ordered By: Familia Al/Other Patient Handouts: Managing Type 2 Diabetes, A1C Admission Data Admit Date/Time: 10/14/20 10:36 Attending Provider: Familia Wilkinson Admit Provider: Familia Wilkinson Primary Care Provider: Nicolas Riley Other Providers: Shay Montenegro ; Familia Wilkinson ; Williams Osborne Other Interventions: Discharge Summary Assessment (RN) Last Done: 10/16/20 12:43
[2020-10-16] MEDS: FUROSEMIDE 20 MG TAB PO SCH (14:52)
[2020-10-16] MEDS ORDERED: WARFARIN SOD 2.5 MG TAB PO SCH (16:00)
--- NOTE | 2020-10-17 07:53 | Electrocardiogram Report ---
Test Reason : Blood Pressure : / mmHG Vent. Rate : 062 BPM Atrial Rate : 059 BPM P-R Int : 000 ms QRS Dur : 172 ms QT Int : 542 ms P-R-T Axes : 000 -67 087 degrees QTc Int : 550 ms Poor data quality, interpretation may be adversely affected Ventricular-paced rhythm Abnormal ECG When compared with ECG of 15-OCT-2020 05:39, No significant change Confirmed by Saud Deng ([id number]) on 10/17/2020 7:53:16 AM Referred By: Louie Tavera Confirmed By:Saud Deng
--- NOTE | 2020-10-22 15:17 | Electrocardiogram Report ---
Test Reason : Blood Pressure : / mmHG Vent. Rate : 062 BPM Atrial Rate : 062 BPM P-R Int : 250 ms QRS Dur : 102 ms QT Int : 486 ms P-R-T Axes : -06 -16 -61 degrees QTc Int : 493 ms Atrial-paced rhythm with prolonged AV conduction T wave abnormality, consider inferior ischemia T wave abnormality, consider anterolateral ischemia Prolonged QT Abnormal ECG When compared with ECG of 16-OCT-2020 05:24, Electronic atrial pacemaker has replaced Electronic ventricular pacemaker Confirmed by Dano Fenton ([id number]) on 10/22/2020 3:17:18 PM Referred By: Louie Tavera Confirmed By:Garcia Fenton
== END 2020-10-16 15:50 | disposition home or self-care (01) | DRG 309 ==
LOC: ED 09:28 → 2S 10:36